=== PATIENT | female | born 1995 | race Native Hawaiian/Other Pacific Islander ===

== ENCOUNTER 2017-12-03 09:39 | Emergency (ER) | payer OTHER, SELFPAY ==
[2017-12-03 09:52] VITALS: BP 126/75; PULSE 60; RESP 16; TEMP 36.9; O2SAT 98
[2017-12-03 10:40] VITALS: BP 128/81; PULSE 90; RESP 16; O2SAT 99
--- NOTE | 2017-12-03 10:43 | ED.HA ---
HPI - Headache General Chief Complaint: Headache Stated Complaint: HEADACHE,VOMITING Time Seen by Provider: 12/03/17 09:57 Source: patient and family Mode of arrival: ambulatory Limitations: no limitations History of Present Illness HPI Narrative: Patient presents to the emergency department today with a chief complaint of severe frontal headache for the past few days. She denies any injury or recent illness. She denies fever or chills. Her pain is worse with bright lights and loud noises and improves with rest. She was seen at [facility] again yesterday and had head CT which suggested she may have an underlying mass at which point she was encouraged to get an outpatient MRI. Her pain worsened and she was directed to the emergency department instead. She denies any neck pain MD Complaint: headache Onset (ago): day(s) Onset description: gradual Location: frontal Severity: severe Quality: aching and throbbing Relieving factors: dark room Exacerbating factors: exertion and noise Associated symptoms: nausea and vomiting Treatments prior to arrival: none Related Data Home Medications Medication Instructions Recorded Confirmed albuterol sulfate 2 puff INHALATION Q6H PRN 12/03/17 12/03/17 ibuprofen 600 mg PO TID PRN 12/03/17 12/03/17 loratadine 10 mg PO DAILY 12/03/17 12/03/17 ondansetron [Zofran ODT] 4 mg PO Q4H PRN 12/03/17 12/03/17 pimecrolimus 1 applic TOPICAL BID 12/03/17 12/03/17 Allergies Allergy/AdvReac Type Severity Reaction Status Date / Time No Known Drug Allergies Allergy Verified 12/03/17 10:02 Review of Systems Review of Systems All systems reviewed & are unremarkable except as noted in HPI and below Constitutional Denies chills, Denies fever(s), Reports headache(s), Denies lethargy and Denies weakness Eyes Denies change in vision, Denies eye discharge, Denies irritation and Denies loss of vision ENT Ears, Nose, Mouth, and Throat: Denies change in voice, Reports headache(s), Denies neck pain and Denies sore throat Cardiovascular Denies chest pain, Denies irregular heart rhythm, Denies lightheadedness, Denies palpitations, Denies dyspnea, Denies dyspnea on exertion and Denies orthopnea Respiratory Denies cough, Denies dyspnea, Denies dyspnea on exertion and Denies wheezing Gastrointestinal Gastrointestinal: Denies abdominal pain, Denies change in bowel habits, Denies diarrhea, Reports nausea and Reports vomiting Genitourinary Denies hematuria, Denies flank pain, Denies urinary incontinence and Denies urinary urgency Musculoskeletal Denies neck pain Integumentary/Breasts Denies pruritus, Denies erythema, Denies rash and Denies wounds Neurologic Denies confusion, Reports headache(s), Denies loss of vision and Denies weakness Psychiatric Denies anxiety, Denies confusion, Denies depression, Denies homicidal ideation and Denies suicidal ideation Endocrine Denies palpitations Hematologic/Lymphatic Denies easy bruising Allergic/Immunologic Denies wheezing [facility] Medical History Acute eczema (Acute) Asthma (Acute) Brain mass (Acute) Social History Smoking Status: Never smoker Exam Narrative Exam Narrative: 22-year-old female in obvious distress, clutching her head in pain Initial Vital Signs Initial Vital Signs: Vital Signs Temperature 98.5 F 12/03/17 09:52 Pulse Rate 60 12/03/17 09:52 Respiratory Rate 16 12/03/17 09:52 Blood Pressure 126/75 H 12/03/17 09:52 Pulse Oximetry 98 12/03/17 09:52 Const General: cooperative and well developed Nutritional Appearance: well nourished Orientation: alert, awake, oriented x3 and not confused [facility] Head: normocephalic and atraumatic Ears: external ears normal and TM's normal bilaterally Nose: external nose normal and No nasal discharge Face and sinus: sinuses nontender, face symmetric, no sinus tenderness and No dry mucous membranes Mouth: oral mucosae normal and moist mucous membranes Teeth and gingiva: dentition normal Throat: tonsils normal and uvula midline Eyes General: appearance normal, both eyes and all related structures Eyelids: eyelids normal Conjunctivae: conjunctivae normal Sclera: sclerae normal Pupils: PERRL EOM: EOM intact bilaterally Chest Chest: normal inspection of the chest Cardio Rate: regular rate Rhythm: regular rhythm Heart Sounds: no click, no gallops, no murmurs and no rubs Pulses: normal peripheral pulses GI Inspection: non-distended Palpation: soft, no hepatosplenomegaly, No guarding, No pulsatile mass and No tender Auscultation: normal bowel sounds Back/Spine/Pelvis Back: No CVA tenderness Cervical Spine: cervical ROM normal and No pain with cervical ROM Thoracic/Lumbar Spine: thoracic and lumbar spine normal to inspection Neuro General: alert, oriented x3, gait normal and no focal motor deficits Cranial Nerves: CN's II-XI intact bilaterally Speech: speech normal Motor: muscle tone normal throughout Sensory Exam: no sensory deficits noted Extrem General: full ROM, no clubbing, cyanosis or edema, no pedal edema and no calf tenderness Psych Appearance: well kempt Mental Status: mental status grossly normal Attitude: cooperative Thought Content: normal and suicidality Judgment: judgment good Course Orders Ordered: ED Orders 12/03/17 10:54 MR head/brain wo/w con Stat 12/03/17 11:15 Basic Metabolic Panel Stat Complete Blood Count AUTO DIFF Stat Discontinued Medications Benztropine Mesylate (Cogentin) 1 mg PO NOW ONE Stop: 12/03/17 11:26 Last Admin: 12/03/17 12:20 Dose: Dexamethasone (Decadron) 10 mg IV NOW ONE Stop: 12/03/17 10:54 Last Admin: 12/03/17 11:14 Dose: 10 mg Diphenhydramine HCl (Benadryl) 25 mg IV NOW ONE Stop: 12/03/17 10:54 Last Admin: 12/03/17 11:14 Dose: 25 mg Sodium Chloride (Normal Saline 0.9%) 1,000 mls @ 1,000 mls/hr IV BOLUS ONE Stop: 12/03/17 11:52 Last Admin: 12/03/17 11:09 Dose: 1,000 mls/hr Ketorolac Tromethamine (Toradol) 15 mg IV NOW ONE Stop: 12/03/17 10:54 Last Admin: 12/03/17 11:11 Dose: 15 mg Lorazepam (Ativan) 1 mg IV NOW ONE Stop: 12/03/17 11:31 Last Admin: 12/03/17 11:35 Dose: 1 mg Metoclopramide HCl (Reglan) 10 mg IV NOW ONE Stop: 12/03/17 10:54 Last Admin: 12/03/17 11:12 Dose: 10 mg Vital Signs - 8 hr 12/03/17 09:52 12/03/17 10:40 12/03/17 11:30 Temperature 98.5 F Pulse Rate 60 90 78 Respiratory Rate 16 16 16 Blood Pressure 126/75 H Blood Pressure [Left Arm] 128/81 H 118/79 Pulse Oximetry 98 99 100 12/03/17 12:26 Temperature Pulse Rate 63 Respiratory Rate 21 Blood Pressure Blood Pressure [Left Arm] 133/70 H Pulse Oximetry 100 MDM - Headache Differential Diagnosis Differential diagnosis: Likely migraine, tension headache, subarachnoid hemorrhage, headache, meningitis, sinusitis and postconcussion syndrome Medical Records Attestation: I reviewed the patient's medical records. Lab Data Attestation: I reviewed the patient's lab results. Result diagrams: 12/03/17 11:15 12/03/17 11:15 Lab Results 12/03/17 12/03/17 Range/Units 11:15 11:15 WBC 13.8 H (4.5-11.0) X10^3/uL RBC 5.06 (4.0-5.2) X10^6/uL Hgb 13.3 (12.0-16.0) g/dL Hct 40.5 (36-46) % MCV 80.1 (80-100) fL MCH 26.3 (26-34) PG MCHC 32.8 (30-36) % RDW 13.7 (11.6-14.8) % Plt Count 435 H (150-400) X10^3/uL Neut % (Auto) 81.7 H (50-75) % Lymph % (Auto) 11.9 L (25-40) % [place] % (Auto) 4.5 (3-14) % Eos % (Auto) 1.6 L (2-4) % Baso % (Auto) 0.3 (0-2) % Neut # (Auto) 01433 H (8085-4549) /uL Sodium 139 (137-145) mmol/L Potassium 3.8 (3.4-5.1) mmol/L Chloride 100 (98-107) mmol/L Carbon Dioxide 26 (22-32) mmol/L BUN 10 (7-17) mg/dL Creatinine 0.50 L (0.52-1.04) mg/dL Estimated GFR > 60.0 (>60) mL/min BUN/Creatinine Ratio 20.0 (6-22) Glucose 103 H (70-100) mg/dL Calcium 9.3 (8.4-10.2) mg/dL Imaging Data MRI - head: Attestation: I personally reviewed and interpreted this imaging study as follows: My impression: PROCEDURE: MR HEAD/BRAIN WO/W CON INDICATIONS: severe WADE, vomiting. Mass on CT at outside facility TECHNIQUE: Noncontrast axial T1 spin echo, axial T2 fast spin echo, sagittal and axial FLAIR, coronal T2 fast spin echo, axial gradient echo, axial diffusion and ADC through the brain. After the administration of contrast, axial and coronal 3D VIBE or T1 spin echo with fat saturation through the brain. COMPARISON: None. FINDINGS: Image quality: Excellent. CSF Spaces: Basal cisterns are patent. No extra-axial fluid collections. Ventricles are mildly asymmetric in size and shape, with the left lateral ventricle smaller than that on the right, but with normal adjacent brain parenchyma and no sign of mass lesion or contrast enhanced abnormality to explain that asymmetry. Brain: No midline shift. No intracranial bleeds or masses. No abnormal intracranial enhancement. The brainstem appears normal. Diffusion-weighted images demonstrate no acute ischemic insults. No chronic ischemic insults. Normal intravascular flow voids are present. Skull and face: Calvarial marrow is normal in signal. Orbits appear normal. Sinuses: Sinuses and mastoids appear clear. IMPRESSION: A source of severe headache and persistent vomiting is not identified. There is normal anatomic variant asymmetry in the size of the lateral ventricles, smaller on the left than the right, and this is most prominent when comparing the frontal horn of the lateral ventricles. However, the contrast enhanced and pre-contrast imaging shows normal appearing brain parenchyma immediately adjacent to the left lateral ventricle. No underlying mass is suspected but this asymmetry may explain the reported concern by prior CT scanning at an outside institution for possible underlying mass lesion. Dictated by: Hernán Abel M.D. on 12/03/2017 at 12:12 Approved by: Hernán Abel M.D. on 12/03/2017 at 12:17 [facility] Narrative Medical decision making narrative: patient resting comfortably. No fever, neck pain, recent illness. Discharge Plan Departure Patient Disposition: Home, Self-Care Clinical Impression: Headache Instructions: DI for Headache Activity Restrictions/Additional Instructions: My headache Prescriptions: No Action ibuprofen 600 mg Tablet 600 mg PO TID PRN (Reason: Pain (Scale Score 1-3)) RF: 0 ondansetron [Zofran ODT] 4 mg Tablet,Disintegrating 4 mg PO Q4H PRN (Reason: Nausea) RF: 0 pimecrolimus 1 % Cream 1 applic TOPICAL BID RF: 0 loratadine 10 mg Tablet 10 mg PO DAILY RF: 0 albuterol sulfate 90 mcg/actuation Hfa Aerosol Inhaler 2 puff INHALATION Q6H PRN (Reason: Dyspnea) RF: 0
--- NOTE | 2017-12-03 10:54 | DI.MRI.S_ITS ---
PROCEDURE: MR HEAD/BRAIN WO/W CON INDICATIONS: severe WADE, vomiting. Mass on CT at outside facility TECHNIQUE: Noncontrast axial T1 spin echo, axial T2 fast spin echo, sagittal and axial FLAIR, coronal T2 fast spin echo, axial gradient echo, axial diffusion and ADC through the brain. After the administration of contrast, axial and coronal 3D VIBE or T1 spin echo with fat saturation through the brain. COMPARISON: None. FINDINGS: Image quality: Excellent. CSF Spaces: Basal cisterns are patent. No extra-axial fluid collections. Ventricles are mildly asymmetric in size and shape, with the left lateral ventricle smaller than that on the right, but with normal adjacent brain parenchyma and no sign of mass lesion or contrast enhanced abnormality to explain that asymmetry. Brain: No midline shift. No intracranial bleeds or masses. No abnormal intracranial enhancement. The brainstem appears normal. Diffusion-weighted images demonstrate no acute ischemic insults. No chronic ischemic insults. Normal intravascular flow voids are present. Skull and face: Calvarial marrow is normal in signal. Orbits appear normal. Sinuses: Sinuses and mastoids appear clear. IMPRESSION: A source of severe headache and persistent vomiting is not identified. There is normal anatomic variant asymmetry in the size of the lateral ventricles, smaller on the left than the right, and this is most prominent when comparing the frontal horn of the lateral ventricles. However, the contrast enhanced and pre-contrast imaging shows normal appearing brain parenchyma immediately adjacent to the left lateral ventricle. No underlying mass is suspected but this asymmetry may explain the reported concern by prior CT scanning at an outside institution for possible underlying mass lesion. Dictated by: Hernán Abel M.D. on 12/03/2017 at 12:12 Approved by: Hernán Abel M.D. on 12/03/2017 at 12:17
[2017-12-03] MEDS: SODIUM CHLORIDE 0.9% 1,000 ML 1000 ML IV (11:09)
[2017-12-03] MEDS: KETOROLAC 60 MG/2 ML VIAL 15 MG IV (11:11)
[2017-12-03] MEDS: METOCLOPRAMIDE 10 MG/2 ML INJ IV (11:12)
[2017-12-03] MEDS: DEXAMETHASONE 10 MG/ML VIAL IV (11:14)
[2017-12-03] MEDS: diphenhydrAMINE 50 MG/ML VIAL 25 MG IV (11:14)
[2017-12-03 11:23] LABS: Add Manual Diff / Slide Review NO; Basophils Percent Auto 0.3 % (0-2); Eosinophils Percent Auto 1.6 % (2-4); Hematocrit 40.5 % (36-46); Hemoglobin 13.3 g/dL (12.0-16.0); Lymphocytes Percent Auto 11.9 % (25-40); Mean Corpuscular HGB Conc 32.8 % (30-36); Mean Corpuscular Hemoglobin 26.3 PG (26-34); Mean Corpuscular Volume 80.1 fL (80-100); Monocytes Percent Auto 4.5 % (3-14); Neutrophils Absolute Auto 11300 /uL (3000-5900); Neutrophils Percent Auto 81.7 % (50-75); Platelet Count 435 X10^3/uL (150-400); Red Blood Cell Count 5.06 X10^6/uL (4.0-5.2); Red Cell Distribution Width 13.7 % (11.6-14.8); White Blood Cell Count 13.8 X10^3/uL (4.5-11.0)
--- NOTE | 2017-12-03 11:27 | PC.NURSE ---
Moaning and writhing in pain, unable to lie still. Edil PURCELL aware.
[2017-12-03 11:30] VITALS: BP 118/79; PULSE 78; RESP 16; O2SAT 100
[2017-12-03] MEDS: LORazepam 2 MG/ML SYRINGE 1 MG IV (11:35)
[2017-12-03 11:40] LABS: Blood Urea Nitrogen 10 mg/dL (7-17); Calcium 9.3 mg/dL (8.4-10.2); Carbon Dioxide 26 mmol/L (22-32); Chloride 100 mmol/L (98-107); Estimated Glomerular Filt Rate > 60.0 mL/min (>60); Glucose 103 mg/dL (70-100); HEMOLYSIS < 15 (0-50); Potassium 3.8 mmol/L (3.4-5.1); Sodium 139 mmol/L (137-145)
[2017-12-03 12:26] VITALS: BP 133/70; PULSE 63; RESP 21; O2SAT 100
--- NOTE | 2017-12-03 12:41 | PC.NURSE ---
Patient unable to lay flat due to uncomfortability of muscle cramp. She was given 1 mg ativan instead of cogentin which was originally ordered to help with these symptoms, so that we could get her calm enough to lie flat for MRI. Ativan was effective and calmed her down within a minute. She reports pain in muscle has subsided.
[2017-12-03 13:50] VITALS: BP 116/65; PULSE 68; RESP 16; O2SAT 98
== END 2017-12-03 13:50 | disposition home or self-care (01) ==
PROVIDERS: Emergency Provider Emergency Medicine
DX: R51 Headache (principal)
CPT/HCPCS: 36591; 70553; 80048; 85025; 96361; 96374; 96375; 99283; 99284; J1100; J1200; J1885; J2060; J2765

== ENCOUNTER 2019-02-05 20:01 | Emergency (ER) | payer OTHER, SELFPAY ==
[2019-02-05 20:05] VITALS: BP 99/61; PULSE 90; RESP 16; TEMP 36.6; O2SAT 96
--- NOTE | 2019-02-05 20:13 | ED.RECABL ---
HPI - Recheck/Abnormal Lab/Rx General Chief Complaint: Recheck/Abnormal Lab/Rx Stated Complaint: PEG TUBE ISSUE Time Seen by Provider: 02/05/19 20:08 Source: family Mode of arrival: wheelchair Limitations: no limitations History of Present Illness HPI narrative: Patient is a 23-year-old female with multiple medical problems. 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 She is not taking any food or liquid by mouth. The parents here for evaluation of the PEG tube. They stated that 3 of today's feedings took longer than normal. he stated that it did flush before and after the feedings without any problems however the tube feedings just took longer. They think that the child has been pulling at the PEG tube. There is also a small amount of red material around the PEG tube they are concerned about. Parents state that she is at her baseline mental status. Related Data Home Medications Medication Instructions Recorded Confirmed albuterol sulfate 2 puff INHALATION Q6H PRN 12/03/17 12/03/17 ibuprofen 600 mg PO TID PRN 12/03/17 12/03/17 loratadine 10 mg PO DAILY 12/03/17 12/03/17 ondansetron [Zofran ODT] 4 mg PO Q4H PRN 12/03/17 12/03/17 pimecrolimus 1 applic TOPICAL BID 12/03/17 12/03/17 Allergies Allergy/AdvReac Type Severity Reaction Status Date / Time No Known Drug Allergies Allergy Verified 12/03/17 10:02 Review of Systems Review of Systems ROS Unobtainable: Unobtainable due to medical condition [facility] Medical History Acute eczema (Acute) Asthma (Acute) Brain mass (Acute) Encephalitis (Acute) Surgical History S/P percutaneous endoscopic gastrostomy (PEG) tube placement (Acute) Social History Smoking Status: Never smoker Social History Smoking Status: Never smoker Exam Initial Vital Signs Initial Vital Signs: Vital Signs Temperature 97.9 F 02/05/19 20:05 Pulse Rate 90 08/22/19 20:05 Respiratory Rate 16 02/05/19 20:05 Blood Pressure 99/61 02/05/19 20:05 Pulse Oximetry 96 02/05/19 20:05 Const General: comfortable Orientation: awake HENMT Head: normal to inspection and normocephalic Neck Other: Trach stoma appears well and is closing appropriately Resp Effort & Inspection: normal respiratory effort Cardio Rate: regular rate GI Other: Patient with a PEG tube in the left upper quadrant. It appears to be in place. There is no drainage. There is a small amount of granulation tissue at the insertion site. There is no active bleeding. Neuro Other: Nonverbal, does not follow commands is at baseline per the parents Extrem General: capillary refill normal Course Vital Signs - 8 hr 02/05/19 20:05 02/05/19 21:11 Temperature 97.9 F Pulse Rate 90 68 Respiratory Rate 16 Blood Pressure 99/61 93/52 L Pulse Oximetry 96 96 MDM - Recheck/Abnormal Lab/Rx MDM Narrative Medical decision making narrative: Her PEG tube looks well and appears to be in place. The red areas around the PEG tube is granulation tissue. There is no need for intervention here in the ER for this. I did discuss this with the parents. They stated that the tube feedings today were slow. They did infuse but would just took longer than normal. Mother states that the flushes were normal afterwards. I do not feel like the tube is been displaced. Will hold on further workup for now. We discussed return precautions and follow-up instructions parents expressed understanding and agreement with plan. Discharge Plan Departure Patient Disposition: Home Clinical Impression: Irritation around percutaneous endoscopic gastrostomy (PEG) tube site Discharge Date/Time: 02/05/19 21:11 Interventions: ED Discharge Assessment Last Done: 02/05/19 21:11 Instructions: How to Care for Your PEG Tube Activity Restrictions/Additional Instructions: You can give her 1 extra strength Tylenol every 4 hours as needed for discomfort. Contact her primary provider for a follow-up. Return to the emergency department for any new or worsening symptoms. Prescriptions: No Action ibuprofen 600 mg Tablet 600 mg PO TID PRN (Reason: Pain (Scale Score 1-3)) RF: 0 ondansetron [Zofran ODT] 4 mg Tablet,Disintegrating 4 mg PO Q4H PRN (Reason: Nausea) RF: 0 pimecrolimus 1 % Cream 1 applic TOPICAL BID RF: 0 loratadine 10 mg Tablet 10 mg PO DAILY RF: 0 albuterol sulfate 90 mcg/actuation Hfa Aerosol Inhaler 2 puff INHALATION Q6H PRN (Reason: Dyspnea) RF: 0
[2019-02-05 21:11] VITALS: BP 93/52; PULSE 68; O2SAT 96
== END 2019-02-05 21:11 | disposition home or self-care (01) ==
PROVIDERS: Emergency Provider Emergency Medicine
DX: K94.29 Other complications of gastrostomy (principal)
CPT/HCPCS: 99282

== ENCOUNTER 2019-02-11 21:41 | Emergency (ER) | payer OTHER, SELFPAY ==
[2019-02-11 21:48] VITALS: BP 102/60; PULSE 108; RESP 15; TEMP 36.3; O2SAT 96
--- NOTE | 2019-02-11 23:39 | PC.NURSE ---
Her PEG tube was accidentally pulled out tonight.
--- NOTE | 2019-02-12 00:24 | ED_ITS ---
HPI - Wound/Laceration General Chief Complaint: Wound/Laceration Stated Complaint: PEGG tube is out Time Seen by Provider: 02/12/19 00:04 Source: family and old records reviewed Limitations: no limitations History of Present Illness HPI narrative: Patient is a 23-year-old female with history of encephalitis she is now nonambulatory and nonverbal she had a G tube however this evening the tube fell out. Mom and dad are worried unable to give her seizure patient's. Most of her care was done at patient they are unsure the size of the tube. She is completely NPO. Related Data Home Medications Medication Instructions Recorded Confirmed albuterol sulfate 2 puff INHALATION Q6H PRN 12/03/17 12/03/17 ibuprofen 600 mg PO TID PRN 12/03/17 12/03/17 loratadine 10 mg PO DAILY 12/03/17 12/03/17 ondansetron [Zofran ODT] 4 mg PO Q4H PRN 12/03/17 12/03/17 pimecrolimus 1 applic TOPICAL BID 12/03/17 12/03/17 Allergies Allergy/AdvReac Type Severity Reaction Status Date / Time No Known Drug Allergies Allergy Verified 02/11/19 21:48 Review of Systems Review of Systems ROS Unobtainable: Unobtainable due to medical condition [facility] Medical History Acute eczema (Acute) Asthma (Acute) Brain mass (Acute) Encephalitis (Acute) Surgical History S/P percutaneous endoscopic gastrostomy (PEG) tube placement (Acute) Social History Smoking Status: Never smoker Social History Smoking Status: Never smoker Exam Initial Vital Signs Initial Vital Signs: Vital Signs Temperature 97.3 F L 02/11/19 21:48 Pulse Rate 108 H 02/11/19 21:48 Respiratory Rate 15 02/11/19 21:48 Blood Pressure 102/60 02/11/19 21:48 Pulse Oximetry 96 02/11/19 21:48 Gen.: Alert nonverbal female HEENT: Normal to inspection no trauma noted Neck: Trach stoma noted Lungs: No respiratory distress Cardiac: Peripheral pulses intact Abdomen: G tube site noted, no significant surrounding erythema abdomen overall nontender normal bowel sounds Extremities: Moving upper extremities Neurologic: Non verbal does not follow commands, good eye contact Course Vital Signs Vital signs: Vital Signs - 8 hr 02/11/19 21:48 02/12/19 02:05 Temperature 97.3 F L 97.9 F Pulse Rate 108 H 84 Respiratory Rate 15 18 Blood Pressure 102/60 100/62 Pulse Oximetry 96 97 MDM - Wound/Laceration MDM Narrative Medical decision making narrative: Unfortunately unable to find G tube or PEG tube or any sort of feeding tube in the hospital. A 20 [place] Moralez catheter placed by myself at this site. It has good gastric content return easily flushes. Mother was able to give seizure medications including Keppra clonazepam and Vimpat. I have explained this is a temporary until a Gtube can be replaced. I have apologized about not having the correct device. At this time it can be use for medications and feedings. Discharge Plan Departure Patient Disposition: Home Clinical Impression: Gastrostomy tube dysfunction, Gastrojejunostomy tube dislodgement Discharge Date/Time: 02/12/19 02:05 Instructions: DI for Feeding Tube Exchange, How to Use Your Feeding Tube Activity Restrictions/Additional Instructions: *You have been diagnosed with feeding to *What to do: You will need a proper feeding tube. Unfortunately we did not have any available. Moralez catheter has been placed. It is okay for medications and some tube feedings. *Continue to take medications as directed *Follow up with your primary care provider in 2-3 days *Return to ER if you should have redness abdominal pain, dislodgement or any new, worsening or concerning symptoms Prescriptions: No Action ibuprofen 600 mg Tablet 600 mg PO TID PRN (Reason: Pain (Scale Score 1-3)) RF: 0 ondansetron [Zofran ODT] 4 mg Tablet,Disintegrating 4 mg PO Q4H PRN (Reason: Nausea) RF: 0 pimecrolimus 1 % Cream 1 applic TOPICAL BID RF: 0 loratadine 10 mg Tablet 10 mg PO DAILY RF: 0 albuterol sulfate 90 mcg/actuation Hfa Aerosol Inhaler 2 puff INHALATION Q6H PRN (Reason: Dyspnea) RF: 0 Referrals: Bill Monteiro MD [Primary Care Provider] -
[2019-02-12 02:05] VITALS: BP 100/62; PULSE 84; RESP 18; TEMP 36.6; O2SAT 97
--- NOTE | 2019-02-12 02:25 | PC.NURSE ---
DR Guillory inserted sullivan catheter in left abdomen to use a PEG tube for her meds and feedings,the site was clean and dry and pink at the edges before insertion,DR cleaned the site prior to placing catheter.Her mother was able to give her her night time meds with out difficulty after,DR Guillory had prior confirmed placement by aspiration of stomach contents.A sterile 4 by 4 dressing was placed and the tube was secured with tape.
== END 2019-02-12 02:05 | disposition home or self-care (01) ==
PROVIDERS: Emergency Provider Emergency Medicine; PCP Internal Medicine
DX: K94.23 Gastrostomy malfunction (principal)
CPT/HCPCS: 99282; 99283

== ENCOUNTER 2021-11-28 13:30 | Outpatient (RCR) | payer OTHER, MEDICAID, SELFPAY ==
--- NOTE | 2021-08-29 17:35 | ST.OPIE ---
Visit Care Team Role Provider Type Bill Monteiro MD Primary Care Provider Non-Staff Specialty: Internal Medicine Address: [address] [facility], [place], [address] Email: Gab Lester MD Attending Provider Non-Staff Referring Provider Specialty: Family Practice Address: [address] [place] [address], [id number] Email: Speech-Language Pathology Initial Evaluation GROUND SOURCE HEAT PUMP TECHNICIAN Adult Cognitive Linguistic Eval Start: 08/29/21 13:32 Freq: Status: Active Protocol: Document 08/29/21 13:35 CYNTHIA (Rec: 08/29/21 13:52 CYNTHIA [email or web address]) Adult Cognitive Linguistic Evaluation Session Time Visit Start Time 13:30 Visit Stop Time 14:30 Total Visit Minutes 60 Visit Information Visit Number Initial Evaluation Plan of Care Dates 08/29/21 - 12/06/21 Insurance Information [facility] Referral Referring Provider Dr. Gab Roman Reason for Referral Encephalitis and encephalomyelitis, unspecified Setting Assessment Location Outpatient Care Visit Type Note Type Initial evaluation Next Note Type Next Note Type Treatment Note Patient Information Patient History Pt is a 26-yr-old female diagnosed with anti-NMDA receptor encephalitis in 2018. Symptoms began with headache and nausea in October 2017. Pt's parents brought her to [facility], where CT scan revealed a potential brain mass. Pt went to [facility] ED the following day, where MRI revealed no underlying mass but asymmetry in the size of the lateral ventricles, smaller on the left than the right, which may explain the reported concern by prior CT scanning. The pt went home and the following day had grand mal seizure. She was admitted to [facility] ICU for 6 mos ([id number]) with severe dyskinesia and ongoing seizure activity. A coma was induced, and the pt underwent tracheotomy and PEG tube feeding. As she became more alert and able to track and respond to stimuli, she was transferred to the Neuroscience floor of hospital where she remained for ~2 mos until transferring to [facility] facility in [place] for ~ 4 mos. There, she regressed and had increased seizure activity and was returned to [facility] ICU. A Neurologist diagnosed a reaction to medication ( Amantadine). The medication was removed and the pt transferred again to Neuroscience floor and seizures stopped. The pt went home in December 2018 with (PT/ OT/ST, Nsg and CG) and continued to show progress at home, starting to walk and speak again in 2019. Her mother is a para-educator and was highly participatory in her rehabilitation. Today the pt is self- ambulatory and communicating independently without notable speech or language deficits. PEG tube and port have been removed. Tracheostomy and medication port remain in place, though neither is actively used. The pt is medically cleared to have them closed/removed, but the patient is currently refusing the procedures; the reason was not given. The pt reports ongoing cognitive impairments, particularly in areas of mathematical skills, problem solving and abstract reasoning . Her mother reported ongoing behavioral changes including anxiety, anger, and lack of social interest. 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 Language(s) Spoken in the Home [place]ander Education Level 1 yr college/technical training Occupation Status Not working or attending school d/t deficits Hearing Hearing Level Normal Vision Vision Status Not Impaired Previous Therapy Previous Speech-Language Therapy Yes History of Therapy The pt received GROUND SOURCE HEAT PUMP TECHNICIAN services in acute care, inpatient rehab , LTC, and . Subjective Patient Report The pt arrived on time accompanied by her parents who were present for part of the session, contributing to case history. They were not present during formal assessment. Informal Assessment Receptive Language Normal Yes Expressive Language Normal Yes Pragmatic Language Normal Yes Speech Normal Yes Cognition Normal No Cognitive Impairment(s) Attention,Executive functioning,Problem solving, Reasoning Formal Assessment Standardized Test/Screener Type Cognitive Linguistic Quick Test (CLQT) Administration Complete Results Composite Severity Rating: Mild Pt scored WNL in Language domain and Clock Drawing. She scored mild in all other domains including Attention, Memory, Executive Functions, and Visuospatial Skills. The pt exhibited greatest challenge with mazes, design generation, and recall of oral story. She completed mazes using most of the allotted time, crossing servin and following incorrect paths, which were self-corrected. She generated 2 complete designs, and recalled 10/18 story details and answered 4/6 questions correctly. She generated 12 animals and 10 words beginning with M in 60 sec each. Clock drawing was correct, though hands originated 1/2 from [place]. Pt recognized 5/6 of designs from groups of designs . Orientation and Semantic Comprehension were without error, with exception of Story Retelling items. In conversation, expressive and receptive language, pragmatics and speech were all WNL. Findings/Results Language Function Within normal limits Cognitive Function Mildly impaired Findings The pt presents with mild cognitive communication impairments in areas of attention, memory, executive functions, and visuospatial skills. Cognitive Communication Deficits Self-awareness of Cognitive- Predictive awareness (able to Communication Deficits predict problem; impact of impairments) Impact on Functioning Activity Limits/Particip.Rest. Mild: General Tasks and Demands Interpersonal Interactions Sev: Education Employment Prognosis Prognosis Good Based on Cognitive status,Family support,Duration of symptoms/ severity,Time since onset Plan of Care Speech-Language Treatment Yes Frequency 1x/wk, may reduce frequency over course of treatment Duration 12 visits Patient/Caregiver Education Described results of evaluation,Patient expressed understanding of evaluation, Patient expressed agreement with goals and treatment plans ,Family/caregivers expressed understanding of evaluation, Family/caregivers expressed agreement with goals and treatment plan,Patient requires further education/ training,Family/caregivers require further education/ training Short Term Goals 1. The pt will perform simple functional household tasks requiring problem-solving ability with min assistance using Sbvm-Hcfg-Uj-Review strategy to increase independence and safety. 2. The pt will perform moderately complex in-clinic tasks requiring alternating attention with minimal assistance to improve attention skills required for return to education. 3. The pt will perform abstract reasoning tasks of moderate complexity with 80% accuracy to improve executive function skills required for functional ADLs and return to school. 4. The pt will perform simple in-clinic visuospatial tasks requiring planning and execution with 80% accuracy to improve executive function skills necessary for functional ADLs and return to school. 5. The pt will complete mathematical problems ( addition, subtraction, multiplication, division) of moderate complexity with 80% accuracy to improve math skills necessary for functional ADLs and return to school. Communications Manager Goals 1. The pt will perform moderately complex functional household tasks requiring problem-solving ability independently using Goal-Plan- Do-Review strategy to increase independence and safety. 2. The pt will perform moderately complex functional household tasks requiring alternating attention (e.g., following a recipe) with minimal assistance to improve attention skills required for return to education. 3. The pt will perform deductive reasoning tasks of moderate complexity with 80% accuracy to improve executive function skills required for functional ADLs and return to school. 4. The pt will perform functional home/community tasks requiring planning and execution (e.g., attending appts, meeting HEP deadlines) with min assistance and 80% accuracy to improve executive function skills necessary for functional ADLs and return to school. 5. The pt will complete moderately complex story problems involving basic math functions and measuring with 80% accuracy to improve ability to perform ADLs and return to school.
--- NOTE | 2021-09-19 17:21 | ST.OPTN ---
Visit Care Team Role Provider Type Bill Monteiro MD Primary Care Provider Non-Staff Address: [address] [facility], [place], [address] Gab Lester MD Attending Provider Non-Staff Referring Provider Address: [facility] [place], [address] AIR CONDITIONING SERVICE TECHNICIAN Treatment Note AIR CONDITIONING SERVICE TECHNICIAN Treatment Note Start: 08/29/21 13:32 Freq: Status: Active Protocol: Document 09/19/21 16:54 CYNTHIA (Rec: 09/19/21 16:54 CYNTHIA [email or web address]) Speech Pathology Treatment Note Session Time Visit Start Time 14:30 Visit Stop Time 15:20 Total Visit Minutes 50 Visit Information Visit Number 07/30 Plan of Care Dates 08/29/21 - 12/06/21 Insurance Information [facility] Setting Treatment Setting Outpatient Care Next Note Type Next Note Type Treatment Note General Information Patient History Pt is a 26-yr-old 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 Symptoms began with headache and nausea in October 2017. Pt's parents brought her to [facility], where CT scan revealed a potential brain mass. Pt went to [facility] ED the following day, where MRI revealed no underlying mass but asymmetry in the size of the lateral ventricles, smaller on the left than the right, which may explain the reported concern by prior CT scanning. The pt went home and the following day had grand mal seizure. She was admitted to [facility] ICU for 6 mos ([id number]) with severe dyskinesia and ongoing seizure activity. A coma was induced, and the pt underwent tracheotomy and PEG tube feeding. As she became more alert and able to track and respond to stimuli, she was transferred to the Neuroscience floor of hospital where she remained for ~2 mos until transferring to [facility] facility in [place] for ~ 4 mos. There, she regressed and had increased seizure activity and was returned to [facility] ICU. A Neurologist diagnosed a reaction to medication ( Amantadine). The medication was removed and the pt transferred again to Neuroscience floor and seizures stopped. The pt went home in December 2018 with HH (PT/ OT/ST, Nsg and CG) and continued to show progress at home, starting to walk and speak again in 2019. Her mother is a para-educator and was highly participatory in her rehabilitation. Today the pt is self- ambulatory and communicating independently without notable speech or language deficits. PEG tube and port have been removed. Tracheostomy and medication port remain in place, though neither is actively used. The pt is medically cleared to have them closed/removed, but the patient is currently refusing the procedures; the reason was not given. The pt reports ongoing cognitive impairments, particularly in areas of mathematical skills, problem solving and abstract reasoning . Her mother reported ongoing behavioral changes including anxiety, anger, and lack of social interest. 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 Subjective Observations/Patient Presentation Pt arrived on time. Reported completing elementary level Language Arts homework from workbooks provided by her mother. She stated most but not all exercises were easy. She agreed to bring workbooks to next session for evaluation . Chief Complaint(s) Language,Cognitive Patient Knowledge/Awareness of AIR CONDITIONING SERVICE TECHNICIAN Role Good in Treatment Parent/Caretake Knowledge/Awareness of Good AIR CONDITIONING SERVICE TECHNICIAN Role in Treatment Patient/Caregiver Compliance with Home Good Exercise Program Objective Short Term Goals 1. The pt will perform simple functional household tasks requiring problem-solving ability with min assistance using Opwj-Jusk-Ky-Review strategy to increase independence and safety. 2. The pt will perform moderately complex in-clinic tasks requiring alternating attention with minimal assistance to improve attention skills required for return to education. 3. The pt will perform abstract reasoning tasks of moderate complexity with 80% accuracy to improve executive function skills required for functional ADLs and return to school. 4. The pt will perform simple in-clinic visuospatial tasks requiring planning and execution with 80% accuracy to improve executive function skills necessary for functional ADLs and return to school. 5. The pt will complete mathematical problems ( addition, subtraction, multiplication, division) of moderate complexity with 80% accuracy to improve math skills necessary for functional ADLs and return to school. Mcc Goals 1. The pt will perform moderately complex functional household tasks requiring problem-solving ability independently using Goal-Plan- Do-Review strategy to increase independence and safety. 2. The pt will perform moderately complex functional household tasks requiring alternating attention (e.g., following a recipe) with minimal assistance to improve attention skills required for return to education. 3. The pt will perform deductive reasoning tasks of moderate complexity with 80% accuracy to improve executive function skills required for functional ADLs and return to school. 4. The pt will perform functional home/community tasks requiring planning and execution (e.g., attending appts, meeting HEP deadlines) with min assistance and 80% accuracy to improve executive function skills necessary for functional ADLs and return to school. 5. The pt will complete moderately complex story problems involving basic math functions and measuring with 80% accuracy to improve ability to perform ADLs and return to school. Treatment Activities Targeted math skills using measuring task in [employer]vate shane. The pt initially required rvwe-ff-[id number] instruction and prompts to perform simple fraction problems involving multiplication. Cueing faded to moderate over course of 6 trials. Task was simplified to multiplication problems using numbers 1-12 via flashcards ( 84% acc). A multiplication table was provided to the pt for home practice. Assessment Patient Response to Treatment Good Rehab Potential Excellent Impairments Identified Cognitive-Linguistic Skills Assessment of Overall Progress Improving Assessment of Improvement The pt was stimulable to math problems using fractions but required mod-max prompts. She expressed being disappointed at not remembering math that she used to be very good at. 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 Reviewed with Patient Goals,Progress Being Made,Home Exercise Program Patient/Caregiver Understanding Good Plan Amount of Therapy Recommended 10 Months Frequency of Treatment Once a Week Length of Session 45 Minutes Treatment Emphasis Next Session Cont targeting math skills Therapeutic Contents Client Education,Cognitive- Linguistic Training,Home Exercise Program,Information Processing,Return to School Provided Patient/Caregiver Instruction Home Exercise Program,Plan of Care,Questions/Concerns Therapy Recommendations Continue with Current Program
--- NOTE | 2021-09-25 17:19 | ST.OPTN ---
Visit Care Team Role Provider Type Bill Monteiro MD Primary Care Provider Non-Staff Address: [address] [facility], [place], [address] Gab Lester MD Attending Provider Non-Staff Referring Provider Address: [facility] [place], [address] GASOLINE TRUCK CRANE OPERATOR Treatment Note GASOLINE TRUCK CRANE OPERATOR Treatment Note Start: 08/29/21 13:32 Freq: Status: Active Protocol: Document 09/19/21 16:54 CYNTHIA (Rec: 09/19/21 16:54 CYNTHIA [email or web address]) Speech Pathology Treatment Note Session Time Visit Start Time 14:30 Visit Stop Time 15:20 Total Visit Minutes 50 Visit Information Visit Number 07/30 Plan of Care Dates 08/29/21 - 12/06/21 Insurance Information [facility] Setting Treatment Setting Outpatient Care Next Note Type Next Note Type Treatment Note General Information Patient History Pt is a 26-yr-old 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 Symptoms began with headache and nausea in October 2017. Pt's parents brought her to [facility], where CT scan revealed a potential brain mass. Pt went to [facility] ED the following day, where MRI revealed no underlying mass but asymmetry in the size of the lateral ventricles, smaller on the left than the right, which may explain the reported concern by prior CT scanning. The pt went home and the following day had grand mal seizure. She was admitted to [facility] ICU for 6 mos ([id number]) with severe dyskinesia and ongoing seizure activity. A coma was induced, and the pt underwent tracheotomy and PEG tube feeding. As she became more alert and able to track and respond to stimuli, she was transferred to the Neuroscience floor of hospital where she remained for ~2 mos until transferring to [facility] facility in [place] for ~ 4 mos. There, she regressed and had increased seizure activity and was returned to [facility] ICU. A Neurologist diagnosed a reaction to medication ( Amantadine). The medication was removed and the pt transferred again to Neuroscience floor and seizures stopped. The pt went home in December 2018 with HH (PT/ OT/ST, Nsg and CG) and continued to show progress at home, starting to walk and speak again in 2019. Her mother is a para-educator and was highly participatory in her rehabilitation. Today the pt is self- ambulatory and communicating independently without notable speech or language deficits. PEG tube and port have been removed. Tracheostomy and medication port remain in place, though neither is actively used. The pt is medically cleared to have them closed/removed, but the patient is currently refusing the procedures; the reason was not given. The pt reports ongoing cognitive impairments, particularly in areas of mathematical skills, problem solving and abstract reasoning . Her mother reported ongoing behavioral changes including anxiety, anger, and lack of social interest. 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 Subjective Observations/Patient Presentation Pt arrived on time. Reported completing elementary level Language Arts homework from workbooks provided by her mother. She stated most but not all exercises were easy. She agreed to bring workbooks to next session for evaluation . Chief Complaint(s) Language,Cognitive Patient Knowledge/Awareness of GASOLINE TRUCK CRANE OPERATOR Role Good in Treatment Parent/Caretake Knowledge/Awareness of Good GASOLINE TRUCK CRANE OPERATOR Role in Treatment Patient/Caregiver Compliance with Home Good Exercise Program Objective Short Term Goals 1. The pt will perform simple functional household tasks requiring problem-solving ability with min assistance using Ntda-Twxz-Xv-Review strategy to increase independence and safety. 2. The pt will perform moderately complex in-clinic tasks requiring alternating attention with minimal assistance to improve attention skills required for return to education. 3. The pt will perform abstract reasoning tasks of moderate complexity with 80% accuracy to improve executive function skills required for functional ADLs and return to school. 4. The pt will perform simple in-clinic visuospatial tasks requiring planning and execution with 80% accuracy to improve executive function skills necessary for functional ADLs and return to school. 5. The pt will complete mathematical problems ( addition, subtraction, multiplication, division) of moderate complexity with 80% accuracy to improve math skills necessary for functional ADLs and return to school. Skilled Nursing Goals 1. The pt will perform moderately complex functional household tasks requiring problem-solving ability independently using Goal-Plan- Do-Review strategy to increase independence and safety. 2. The pt will perform moderately complex functional household tasks requiring alternating attention (e.g., following a recipe) with minimal assistance to improve attention skills required for return to education. 3. The pt will perform deductive reasoning tasks of moderate complexity with 80% accuracy to improve executive function skills required for functional ADLs and return to school. 4. The pt will perform functional home/community tasks requiring planning and execution (e.g., attending appts, meeting HEP deadlines) with min assistance and 80% accuracy to improve executive function skills necessary for functional ADLs and return to school. 5. The pt will complete moderately complex story problems involving basic math functions and measuring with 80% accuracy to improve ability to perform ADLs and return to school. Treatment Activities Targeted math skills using measuring task in [employer] shane. The pt initially required guhh-wy-yxvi instruction and prompts to perform simple fraction problems involving multiplication. Cueing faded to moderate over course of 6 trials. Task was simplified to multiplication problems using numbers 1-12 via flashcards ( 84% acc). A multiplication table was provided to the pt for home practice. Assessment Patient Response to Treatment Good Rehab Potential Excellent Impairments Identified Cognitive-Linguistic Skills Assessment of Overall Progress Improving Assessment of Improvement The pt was stimulable to math problems using fractions but required mod-max prompts. She expressed being disappointed at not remembering math that she used to be very good at. 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 Reviewed with Patient Goals,Progress Being Made,Home Exercise Program Patient/Caregiver Understanding Good Plan Amount of Therapy Recommended 10 Months Frequency of Treatment Once a Week Length of Session 45 Minutes Treatment Emphasis Next Session Cont targeting math skills Therapeutic Contents Client Education,Cognitive- Linguistic Training,Home Exercise Program,Information Processing,Return to School Provided Patient/Caregiver Instruction Home Exercise Program,Plan of Care,Questions/Concerns Therapy Recommendations Continue with Current Program
--- NOTE | 2021-09-26 15:25 | ST.OPTN ---
Visit Care Team Role Provider Type Bill Monteiro MD Primary Care Provider Non-Staff Address: [address] [facility], [place], [address] Gab Lester MD Attending Provider Non-Staff Referring Provider Address: [place], [address] GEOLOGICAL ENGINEER Treatment Note GEOLOGICAL ENGINEER Treatment Note Start: 08/29/21 13:32 Freq: Status: Active Protocol: Document 09/26/21 18:15 CYNTHIA (Rec: 09/26/21 18:16 CYNTHIA [id number]) Speech Pathology Treatment Note Session Time Visit Start Time 14:30 Visit Stop Time 15:20 Total Visit Minutes 50 Visit Information Visit Number 08/27 Plan of Care Dates 08/29/21 - 12/06/21 Insurance Information [facility] Setting Treatment Setting Outpatient Care Next Note Type Next Note Type Treatment Note General Information Patient History Pt is a 26-yr-old 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 Symptoms began with headache and nausea in October 2017. Pt's parents brought her to [facility], where CT scan revealed a potential brain mass. Pt went to [facility] ED the following day, where MRI revealed no underlying mass but asymmetry in the size of the lateral ventricles, smaller on the left than the right, which may explain the reported concern by prior CT scanning. The pt went home and the following day had grand mal seizure. She was admitted to [facility] ICU for 6 mos ([id number]) with severe dyskinesia and ongoing seizure activity. A coma was induced, and the pt underwent tracheotomy and PEG tube feeding. As she became more alert and able to track and respond to stimuli, she was transferred to the Neuroscience floor of hospital where she remained for ~2 mos until transferring to [facility] facility in [place] for ~ 4 mos. There, she regressed and had increased seizure activity and was returned to [facility] ICU. A Neurologist diagnosed a reaction to medication ( Amantadine). The medication was removed and the pt transferred again to Neuroscience floor and seizures stopped. The pt went home in December 2018 with HH (PT/ OT/ST, Nsg and CG) and continued to show progress at home, starting to walk and speak again in 2019. Her mother is a para-educator and was highly participatory in her rehabilitation. Today the pt is self- ambulatory and communicating independently without notable speech or language deficits. PEG tube and port have been removed. Tracheostomy and medication port remain in place, though neither is actively used. The pt is medically cleared to have them closed/removed, but the patient is currently refusing the procedures; the reason was not given. The pt reports ongoing cognitive impairments, particularly in areas of mathematical skills, problem solving and abstract reasoning . Her mother reported ongoing behavioral changes including anxiety, anger, and lack of social interest. 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 Subjective Observations/Patient Presentation Pt arrived on time and brought a Language Arts poetry journal and Math book with her to demonstrate what she is using for home practice. She finds both books helpful but feels that she needs more guidance to fully learn material. She stated she has not worked with a tutoring clinician besides her mother. Chief Complaint(s) Language,Cognitive Patient Knowledge/Awareness of GEOLOGICAL ENGINEER Role Good in Treatment Parent/Caretake Knowledge/Awareness of Good GEOLOGICAL ENGINEER Role in Treatment Patient/Caregiver Compliance with Home Good Exercise Program Objective Short Term Goals 1. The pt will perform simple functional household tasks requiring problem-solving ability with min assistance using Urxj-Haep-Lp-Review strategy to increase independence and safety. 2. The pt will perform moderately complex in-clinic tasks requiring alternating attention with minimal assistance to improve attention skills required for return to education. 3. The pt will perform abstract reasoning tasks of moderate complexity with 80% accuracy to improve executive function skills required for functional ADLs and return to school. 4. The pt will perform simple in-clinic visuospatial tasks requiring planning and execution with 80% accuracy to improve executive function skills necessary for functional ADLs and return to school. 5. The pt will complete mathematical problems ( addition, subtraction, multiplication, division) of moderate complexity with 80% accuracy to improve math skills necessary for functional ADLs and return to school. Jail Goals 1. The pt will perform moderately complex functional household tasks requiring problem-solving ability independently using Goal-Plan- Do-Review strategy to increase independence and safety. 2. The pt will perform moderately complex functional household tasks requiring alternating attention (e.g., following a recipe) with minimal assistance to improve attention skills required for return to education. 3. The pt will perform deductive reasoning tasks of moderate complexity with 80% accuracy to improve executive function skills required for functional ADLs and return to school. 4. The pt will perform functional home/community tasks requiring planning and execution (e.g., attending appts, meeting HEP deadlines) with min assistance and 80% accuracy to improve executive function skills necessary for functional ADLs and return to school. 5. The pt will complete moderately complex story problems involving basic math functions and measuring with 80% accuracy to improve ability to perform ADLs and return to school. Treatment Activities Assessed pt's books for home practice, which appear appropriate, although would be beneficial if the pt were able to work with a tutoring clinician. Recommended this to the pt, who expressed concern about the potential cost. GEOLOGICAL ENGINEER agreed to look into resources. Continued targeting basic math skills using addition flash cards. The pt completed with 94% acc and frequent need for extended time. She had particular difficulty with addition of 9. Trained pt in identifying a pattern with 9s to simplify task and increase processing speed. The pt was receptive to this with moderate improvement. Needs reinforcement. Frequently the pt became anxious when answers did not come immediately. She was responsive to prompts to relax and take her time to reduce cognitive load. Categorical Naming: The pt named 14 unique animals in 60 sec, with repetition x3 with 2 animals at the end of the task. She was unaware of the repetitions. Initiated education and training in reasoning strategies to increase cognitive organization and increase word /item recall. She was receptive to this and with guidance named 37 animals within subcategories in an untimed task. The pt exhibited WFDs x5. Will include training in word recall strategies in future sessions. Assessment Patient Response to Treatment Good Rehab Potential Excellent Impairments Identified Cognitive-Linguistic Skills Assessment of Overall Progress Improving Assessment of Improvement The pt completed simple addition problems (including numbers 1-10) with good accuracy but reduced processing speed and occasional need to count on fingers. She produced mildly reduced number of items in a familiar and extensive concrete category. This improved with structured training in reasoning skills. She exhibited occ WFDs during this structured task, warranting training in word recall strategies. It was noted that when answers/words do not come immediately to the pt, she exhibits increased anxiety which increases cognitive load and further reduces her processing ability and speed. She was responsive to verbal prompts to relax and take her time, but this needs reinforcement. It is recommended that the pt work with an biology tutor in tandem to Speech Therapy to more directly retrain specific knowledge and skills and speed her recovery and ability to return to school. Will research options and discuss with the pt and her parents. Reviewed with Patient Goals,Progress Being Made,Home Exercise Program Patient/Caregiver Understanding Good Plan Amount of Therapy Recommended 10 Months Frequency of Treatment Once a Week Length of Session 45 Minutes Treatment Emphasis Next Session Cont targeting math skills & word recall strategies Therapeutic Contents Client Education,Cognitive- Linguistic Training,Home Exercise Program,Information Processing,Return to School Provided Patient/Caregiver Instruction Home Exercise Program,Plan of Care,Questions/Concerns Therapy Recommendations Continue with Current Program
--- NOTE | 2021-09-27 11:12 | ST.OPTN ---
Visit Care Team Role Provider Type Bill Monteiro MD Primary Care Provider Non-Staff Address: [address] [facility], [place], [address] Gab Lester MD Attending Provider Non-Staff Referring Provider Address: [facility] [place], [address] JEWEL LATHE OPERATOR Treatment Note JEWEL LATHE OPERATOR Treatment Note Start: 08/29/21 13:32 Freq: Status: Active Protocol: Document 09/26/21 18:15 CYNTHIA (Rec: 09/26/21 18:16 CYNTHIA [id number]) Speech Pathology Treatment Note Session Time Visit Start Time 14:30 Visit Stop Time 15:20 Total Visit Minutes 50 Visit Information Visit Number 08/27 Plan of Care Dates 08/29/21 - 12/06/21 Insurance Information [facility] Setting Treatment Setting Outpatient Care Next Note Type Next Note Type Treatment Note General Information Patient History Pt is a 26-yr-old 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 Symptoms began with headache and nausea in October 2017. Pt's parents brought her to [facility], where CT scan revealed a potential brain mass. Pt went to [facility] ED the following day, where MRI revealed no underlying mass but asymmetry in the size of the lateral ventricles, smaller on the left than the right, which may explain the reported concern by prior CT scanning. The pt went home and the following day had grand mal seizure. She was admitted to [facility] ICU for 6 mos ([id number]) with severe dyskinesia and ongoing seizure activity. A coma was induced, and the pt underwent tracheotomy and PEG tube feeding. As she became more alert and able to track and respond to stimuli, she was transferred to the Neuroscience floor of hospital where she remained for ~2 mos until transferring to [facility] facility in [place] for ~ 4 mos. There, she regressed and had increased seizure activity and was returned to [facility] ICU. A Neurologist diagnosed a reaction to medication ( Amantadine). The medication was removed and the pt transferred again to Neuroscience floor and seizures stopped. The pt went home in December 2018 with HH (PT/ OT/ST, Nsg and CG) and continued to show progress at home, starting to walk and speak again in 2019. Her mother is a para-educator and was highly participatory in her rehabilitation. Today the pt is self- ambulatory and communicating independently without notable speech or language deficits. PEG tube and port have been removed. Tracheostomy and medication port remain in place, though neither is actively used. The pt is medically cleared to have them closed/removed, but the patient is currently refusing the procedures; the reason was not given. The pt reports ongoing cognitive impairments, particularly in areas of mathematical skills, problem solving and abstract reasoning . Her mother reported ongoing behavioral changes including anxiety, anger, and lack of social interest. 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 Subjective Observations/Patient Presentation Pt arrived on time and brought a Language Arts poetry journal and Math book with her to demonstrate what she is using for home practice. She finds both books helpful but feels that she needs more guidance to fully learn material. She stated she has not worked with a accounting/finance tutor besides her mother. Chief Complaint(s) Language,Cognitive Patient Knowledge/Awareness of JEWEL LATHE OPERATOR Role Good in Treatment Parent/Caretake Knowledge/Awareness of Good JEWEL LATHE OPERATOR Role in Treatment Patient/Caregiver Compliance with Home Good Exercise Program Objective Short Term Goals 1. The pt will perform simple functional household tasks requiring problem-solving ability with min assistance using Dmle-Zbny-Ul-Review strategy to increase independence and safety. 2. The pt will perform moderately complex in-clinic tasks requiring alternating attention with minimal assistance to improve attention skills required for return to education. 3. The pt will perform abstract reasoning tasks of moderate complexity with 80% accuracy to improve executive function skills required for functional ADLs and return to school. 4. The pt will perform simple in-clinic visuospatial tasks requiring planning and execution with 80% accuracy to improve executive function skills necessary for functional ADLs and return to school. 5. The pt will complete mathematical problems ( addition, subtraction, multiplication, division) of moderate complexity with 80% accuracy to improve math skills necessary for functional ADLs and return to school. Half-Way Goals 1. The pt will perform moderately complex functional household tasks requiring problem-solving ability independently using Goal-Plan- Do-Review strategy to increase independence and safety. 2. The pt will perform moderately complex functional household tasks requiring alternating attention (e.g., following a recipe) with minimal assistance to improve attention skills required for return to education. 3. The pt will perform deductive reasoning tasks of moderate complexity with 80% accuracy to improve executive function skills required for functional ADLs and return to school. 4. The pt will perform functional home/community tasks requiring planning and execution (e.g., attending appts, meeting HEP deadlines) with min assistance and 80% accuracy to improve executive function skills necessary for functional ADLs and return to school. 5. The pt will complete moderately complex story problems involving basic math functions and measuring with 80% accuracy to improve ability to perform ADLs and return to school. Treatment Activities Assessed pt's books for home practice, which appear appropriate, although would be beneficial if the pt were able to work with a accounting/finance tutor. Recommended this to the pt, who expressed concern about the potential cost. JEWEL LATHE OPERATOR agreed to look into resources. Continued targeting basic math skills using addition flash cards. The pt completed with 94% acc and frequent need for extended time. She had particular difficulty with addition of 9. Trained pt in identifying a pattern with 9s to simplify task and increase processing speed. The pt was receptive to this with moderate improvement. Needs reinforcement. Frequently the pt became anxious when answers did not come immediately. She was responsive to prompts to relax and take her time to reduce cognitive load. Categorical Naming: The pt named 14 unique animals in 60 sec, with repetition x3 with 2 animals at the end of the task. She was unaware of the repetitions. Initiated education and training in reasoning strategies to increase cognitive organization and increase word /item recall. She was receptive to this and with guidance named 37 animals within subcategories in an untimed task. The pt exhibited WFDs x5. Will include training in word recall strategies in future sessions. Assessment Patient Response to Treatment Good Rehab Potential Excellent Impairments Identified Cognitive-Linguistic Skills Assessment of Overall Progress Improving Assessment of Improvement The pt completed simple addition problems (including numbers 1-10) with good accuracy but reduced processing speed and occasional need to count on fingers. She produced mildly reduced number of items in a familiar and extensive concrete category. This improved with structured training in reasoning skills. She exhibited occ WFDs during this structured task, warranting training in word recall strategies. It was noted that when answers/words do not come immediately to the pt, she exhibits increased anxiety which increases cognitive load and further reduces her processing ability and speed. She was responsive to verbal prompts to relax and take her time, but this needs reinforcement. It is recommended that the pt work with an french tutor in tandem to Speech Therapy to more directly retrain specific knowledge and skills and speed her recovery and ability to return to school. Will research options and discuss with the pt and her parents. Reviewed with Patient Goals,Progress Being Made,Home Exercise Program Patient/Caregiver Understanding Good Plan Amount of Therapy Recommended 10 Months Frequency of Treatment Once a Week Length of Session 45 Minutes Treatment Emphasis Next Session Cont targeting math skills & word recall strategies Therapeutic Contents Client Education,Cognitive- Linguistic Training,Home Exercise Program,Information Processing,Return to School Provided Patient/Caregiver Instruction Home Exercise Program,Plan of Care,Questions/Concerns Therapy Recommendations Continue with Current Program
--- NOTE | 2021-10-10 18:17 | ST.OPTN ---
Visit Care Team Role Provider Type Bill Monteiro MD Primary Care Provider Non-Staff Address: [address], [place], [address] Gab Lester MD Attending Provider Non-Staff Referring Provider Address: [facility] [place], [address] FRIT BURNER Treatment Note FRIT BURNER Treatment Note Start: 08/29/21 13:32 Freq: Status: Active Protocol: Document 10/10/21 18:02 CYNTHIA (Rec: 10/10/21 18:17 CYNTHIA [id number]) Speech Pathology Treatment Note Session Time Visit Start Time 13:30 Visit Stop Time 14:20 Total Visit Minutes 50 Visit Information Visit Number 08/27 Plan of Care Dates 08/29/21 - 12/06/21 Insurance Information [facility] Setting Treatment Setting Outpatient Care Visit Type Note Type Treatment Note Next Note Type Next Note Type Treatment Note General Information Patient History Pt is a 26-yr-old 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 Symptoms began with headache and nausea in October 2017. Pt's parents brought her to [facility], where CT scan revealed a potential brain mass. Pt went to [facility] ED the following day, where MRI revealed no underlying mass but asymmetry in the size of the lateral ventricles, smaller on the left than the right, which may explain the reported concern by prior CT scanning. The pt went home and the following day had grand mal seizure. She was admitted to [facility] ICU for 6 mos ([id number]) with severe dyskinesia and ongoing seizure activity. A coma was induced, and the pt underwent tracheotomy and PEG tube feeding. As she became more alert and able to track and respond to stimuli, she was transferred to the Neuroscience floor of hospital where she remained for ~2 mos until transferring to [facility] facility in [place] for ~ 4 mos. There, she regressed and had increased seizure activity and was returned to [facility] ICU. A Neurologist diagnosed a reaction to medication ( Amantadine). The medication was removed and the pt transferred again to Neuroscience floor and seizures stopped. The pt went home in December 2018 with HH (PT/ OT/ST, Nsg and CG) and continued to show progress at home, starting to walk and speak again in 2020. Her mother is a para-educator and was highly participatory in her rehabilitation. Today the pt is self- ambulatory and communicating independently without notable speech or language deficits. PEG tube and port have been removed. Tracheostomy and medication port remain in place, though neither is actively used. The pt is medically cleared to have them closed/removed, but the patient is currently refusing the procedures; the reason was not given. The pt reports ongoing cognitive impairments, particularly in areas of mathematical skills, problem solving and abstract reasoning . Her mother reported ongoing behavioral changes including anxiety, anger, and lack of social interest. 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 Subjective Observations/Patient Presentation Pt arrived on time with completed homework (math and categorical naming). Answers were accurate. Pt reported needing help from her mom to recall how to show work in division problems and needing to look up some items in categories of school subjects. Chief Complaint(s) Language,Cognitive Patient Knowledge/Awareness of FRIT BURNER Role Good in Treatment Parent/Caretake Knowledge/Awareness of Good FRIT BURNER Role in Treatment Patient/Caregiver Compliance with Home Good Exercise Program Objective Short Term Goals 1. The pt will perform simple functional household tasks requiring problem-solving ability with min assistance using Lagp-Biak-Rr-Review strategy to increase independence and safety. 2. The pt will perform moderately complex in-clinic tasks requiring alternating attention with minimal assistance to improve attention skills required for return to education. 3. The pt will perform abstract reasoning tasks of moderate complexity with 80% accuracy to improve executive function skills required for functional ADLs and return to school. 4. The pt will perform simple in-clinic visuospatial tasks requiring planning and execution with 80% accuracy to improve executive function skills necessary for functional ADLs and return to school. 5. The pt will complete mathematical problems ( addition, subtraction, multiplication, division) of moderate complexity with 80% accuracy to improve math skills necessary for functional ADLs and return to school. Alf Goals 1. The pt will perform moderately complex functional household tasks requiring problem-solving ability independently using Goal-Plan- Do-Review strategy to increase independence and safety. 2. The pt will perform moderately complex functional household tasks requiring alternating attention (e.g., following a recipe) with minimal assistance to improve attention skills required for return to education. 3. The pt will perform deductive reasoning tasks of moderate complexity with 80% accuracy to improve executive function skills required for functional ADLs and return to school. 4. The pt will perform functional home/community tasks requiring planning and execution (e.g., attending appts, meeting HEP deadlines) with min assistance and 80% accuracy to improve executive function skills necessary for functional ADLs and return to school. 5. The pt will complete moderately complex story problems involving basic math functions and measuring with 80% accuracy to improve ability to perform ADLs and return to school. Treatment Activities Assessed pt's homework and provided skilled feedback. The pt completed 20 1- and 2- digit math problems consisting of a mixture of addition, subtraction, multiplication and division in .4. This targeted math skills, alternating attention, and mental flexibility. The pt initially answered like problems (addition), but was instructed to complete the problems in order. She required reference to multiplication table x4 and FRIT BURNER assistance with a double digit subtraction problem. After completion of the task, instruction was provided in subtraction steps and home problems provided. The pt demonstrated understanding of concepts and steps by completing problems independently and accurately. Assessment Patient Response to Treatment Good Rehab Potential Excellent Assessment of Overall Progress Improving Assessment of Improvement The pt is making progress in simple math skills necessary to advance her skills to levels required to return to school. She continues to be reliant on a multiplication table and exhibited slow processing skills, particularly in transitioning between different types of math problems (alternating attention/mental flexibility). Today's scores will serve as a good baseline for progress. Reviewed with Patient Goals,Progress Being Made,Home Exercise Program Patient/Caregiver Understanding Good Plan Amount of Therapy Recommended 10 Months Frequency of Treatment Once a Week Length of Session 45 Minutes Treatment Emphasis Next Session Cont targeting math skills & word recall strategies Therapeutic Contents Client Education,Cognitive- Linguistic Training,Home Exercise Program,Information Processing,Return to School Provided Patient/Caregiver Instruction Home Exercise Program,Plan of Care,Questions/Concerns Therapy Recommendations Continue with Current Program
--- NOTE | 2021-10-17 17:42 | ST.OPTN ---
Visit Care Team Role Provider Type Bill Monteiro MD Primary Care Provider Non-Staff Address: [address] [facility], [place], [address] Gab Lester MD Attending Provider Non-Staff Referring Provider Address: [facility] [place], [address] FORMULATION TECHNICIAN Treatment Note FORMULATION TECHNICIAN Treatment Note Start: 08/29/21 13:32 Freq: Status: Active Protocol: Document 10/17/21 14:27 CYNTHIA (Rec: 10/17/21 14:30 CYNTHIA [id number]) Speech Pathology Treatment Note Session Time Visit Start Time 13:30 Visit Stop Time 14:15 Total Visit Minutes 45 Visit Information Visit Number 09/27 Plan of Care Dates 08/29/21 - 12/06/21 Insurance Information [facility] Setting Treatment Setting Outpatient Care Visit Type Note Type Treatment Note Next Note Type Next Note Type Treatment Note General Information Patient History Pt is a 26-yr-old 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 Symptoms began with headache and nausea in October 2017. Pt's parents brought her to [facility], where CT scan revealed a potential brain mass. Pt went to [facility] ED the following day, where MRI revealed no underlying mass but asymmetry in the size of the lateral ventricles, smaller on the left than the right, which may explain the reported concern by prior CT scanning. The pt went home and the following day had grand mal seizure. She was admitted to [facility] ICU for 6 mos ([id number]) with severe dyskinesia and ongoing seizure activity. A coma was induced, and the pt underwent tracheotomy and PEG tube feeding. As she became more alert and able to track and respond to stimuli, she was transferred to the Neuroscience floor of hospital where she remained for ~2 mos until transferring to [facility] facility in [place] for ~ 4 mos. There, she regressed and had increased seizure activity and was returned to [facility] ICU. A Neurologist diagnosed a reaction to medication ( Amantadine). The medication was removed and the pt transferred again to Neuroscience floor and seizures stopped. The pt went home in December 2018 with HH (PT/ OT/ST, Nsg and CG) and continued to show progress at home, starting to walk and speak again in 2020. Her mother is a para-educator and was highly participatory in her rehabilitation. Today the pt is self- ambulatory and communicating independently without notable speech or language deficits. PEG tube and port have been removed. Tracheostomy and medication port remain in place, though neither is actively used. The pt is medically cleared to have them closed/removed, but the patient is currently refusing the procedures; the reason was not given. The pt reports ongoing cognitive impairments, particularly in areas of mathematical skills, problem solving and abstract reasoning . Her mother reported ongoing behavioral changes including anxiety, anger, and lack of social interest. 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 Subjective Observations/Patient Presentation Pt arrived on time with completed homework. Answers were accurate. Pt also brought her [employer] game player with a downloaded cognitive game program. Chief Complaint(s) Language,Cognitive Patient Knowledge/Awareness of FORMULATION TECHNICIAN Role Good in Treatment Parent/Caretake Knowledge/Awareness of Good FORMULATION TECHNICIAN Role in Treatment Patient/Caregiver Compliance with Home Good Exercise Program Objective Short Term Goals 1. The pt will perform simple functional household tasks requiring problem-solving ability with min assistance using Magm-Cale-Nc-Review strategy to increase independence and safety. 2. The pt will perform moderately complex in-clinic tasks requiring alternating attention with minimal assistance to improve attention skills required for return to education. 3. The pt will perform abstract reasoning tasks of moderate complexity with 80% accuracy to improve executive function skills required for functional ADLs and return to school. 4. The pt will perform simple in-clinic visuospatial tasks requiring planning and execution with 80% accuracy to improve executive function skills necessary for functional ADLs and return to school. 5. The pt will complete mathematical problems ( addition, subtraction, multiplication, division) of moderate complexity with 80% accuracy to improve math skills necessary for functional ADLs and return to school. Skilled Nursing Goals 1. The pt will perform moderately complex functional household tasks requiring problem-solving ability independently using Goal-Plan- Do-Review strategy to increase independence and safety. 2. The pt will perform moderately complex functional household tasks requiring alternating attention (e.g., following a recipe) with minimal assistance to improve attention skills required for return to education. 3. The pt will perform deductive reasoning tasks of moderate complexity with 80% accuracy to improve executive function skills required for functional ADLs and return to school. 4. The pt will perform functional home/community tasks requiring planning and execution (e.g., attending appts, meeting HEP deadlines) with min assistance and 80% accuracy to improve executive function skills necessary for functional ADLs and return to school. 5. The pt will complete moderately complex story problems involving basic math functions and measuring with 80% accuracy to improve ability to perform ADLs and return to school. Treatment Activities Using [employer] Brain tasks, the pt completed task requiring visual analysis, deductive reasoning, selective and alternating attention skills, mental manipulation, and memory. The pt exhibited slow processing speeds in identifying the number of blocks present by counting blocks by ones or twos only. Initially, the pt completed 13 tasks in 60 sec in 2/2 trials with 69% and 85% acc, respectively. Education and training was provided in visual chunking of objects with use of addition and/or multiplication to increase processing speed. Using this strategy, the pt increased accuracy to 90%, although latency increased with the pt completing only 10 tasks. Anticipate latency will improve with practice. Pt completed task in which she identified pieces that formed a given shape with 71% acc increasing with practice to 88 % acc and increased complexity of task. Consulted with the pt RE her goal of returning to school and what she thought she needed to accomplish to be ready for that. She responded that the only holding her back was having the courage to return to the hospital for outpatient procedures to close her trach and have the port removed. She expressed significant fear despite knowing these are very fast and routine procedures. Agreed to discuss more at next session. Assessment Patient Response to Treatment Good Rehab Potential Excellent Progress Towards Goals Excellent Progress,Good Progress Assessment of Overall Progress Improving Assessment of Improvement The pt is making very good progress in simple math skills . She required direction in applying these skills to a new task, after which her accuracy of the task significantly improved. She is using a computerized program for home practice that targets memory, visual processing and analysis, deductive and abstract reasoning, and mental manipulation. She is highly motivated by the tasks and today demonstrated significant improvement with minimal practice. Given the rate of the pt's progress to date, prognosis for return to her education program is good, though it may initially require a slower than typical pace and supportive resources, such as extended time for tests, etc., may be required. The pt appears to have PTSD symptoms that are preventing her from returning to the hospital to have her trach closed and port removed, steps that she sees as necessary before she is able to return to school. Referral to a mental health couselor may be warranted to help her address these fears. Reviewed with Patient Goals,Progress Being Made,Home Exercise Program Patient/Caregiver Understanding Good Plan Amount of Therapy Recommended 10 Months Frequency of Treatment Once a Week Length of Session 45 Minutes Treatment Emphasis Next Session Cont targeting math skills & word recall strategies Therapeutic Contents Client Education,Cognitive- Linguistic Training,Home Exercise Program,Information Processing,Return to School Provided Patient/Caregiver Instruction Home Exercise Program,Plan of Care,Questions/Concerns Therapy Recommendations Continue with Current Program
--- NOTE | 2021-10-24 18:29 | ST.OPTN ---
Visit Care Team Role Provider Type Bill Monteiro MD Primary Care Provider Non-Staff Address: [address] [facility], [place], [address] Gab Lester MD Attending Provider Non-Staff Referring Provider Address: [facility] [place], [address] WINDSCREEN FITTER Treatment Note WINDSCREEN FITTER Treatment Note Start: 08/29/21 13:32 Freq: Status: Active Protocol: Document 10/24/21 18:10 CYNTHIA (Rec: 10/24/21 18:10 CYNTHIA [id number]) Speech Pathology Treatment Note Session Time Visit Start Time 13:30 Visit Stop Time 14:25 Total Visit Minutes 55 Visit Information Visit Number 10/27 Plan of Care Dates 08/29/21 - 12/06/21 Insurance Information [facility] Setting Treatment Setting Outpatient Care Visit Type Note Type Treatment Note Next Note Type Next Note Type Treatment Note General Information Patient History Pt is a 26-yr-old 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 Symptoms began with headache and nausea in October 2017. Pt's parents brought her to [facility], where CT scan revealed a potential brain mass. Pt went to [facility] ED the following day, where MRI revealed no underlying mass but asymmetry in the size of the lateral ventricles, smaller on the left than the right, which may explain the reported concern by prior CT scanning. The pt went home and the following day had grand mal seizure. She was admitted to [facility] ICU for 6 mos ([id number]) with severe dyskinesia and ongoing seizure activity. A coma was induced, and the pt underwent tracheotomy and PEG tube feeding. As she became more alert and able to track and respond to stimuli, she was transferred to the Neuroscience floor of hospital where she remained for ~2 mos until transferring to [facility] facility in [place] for ~ 4 mos. There, she regressed and had increased seizure activity and was returned to [facility] ICU. A Neurologist diagnosed a reaction to medication ( Amantadine). The medication was removed and the pt transferred again to Neuroscience floor and seizures stopped. The pt went home in December 2018 with HH (PT/ OT/ST, Nsg and CG) and continued to show progress at home, starting to walk and speak again in 2020. Her mother is a para-educator and was highly participatory in her rehabilitation. Today the pt is self- ambulatory and communicating independently without notable speech or language deficits. PEG tube and port have been removed. Tracheostomy and medication port remain in place, though neither is actively used. The pt is medically cleared to have them closed/removed, but the patient is currently refusing the procedures; the reason was not given. The pt reports ongoing cognitive impairments, particularly in areas of mathematical skills, problem solving and abstract reasoning . Her mother reported ongoing behavioral changes including anxiety, anger, and lack of social interest. 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 Subjective Others Present Other Observations/Patient Presentation Pt arrived on time accompanied by her mom, who attended part of the session. Chief Complaint(s) Language,Cognitive Patient Knowledge/Awareness of WINDSCREEN FITTER Role Good in Treatment Parent/Caretake Knowledge/Awareness of Good WINDSCREEN FITTER Role in Treatment Patient/Caregiver Compliance with Home Good Exercise Program Objective Short Term Goals 1. The pt will perform simple functional household tasks requiring problem-solving ability with min assistance using Imfn-Smfh-Ax-Review strategy to increase independence and safety. 2. The pt will perform moderately complex in-clinic tasks requiring alternating attention with minimal assistance to improve attention skills required for return to education. 3. The pt will perform abstract reasoning tasks of moderate complexity with 80% accuracy to improve executive function skills required for functional ADLs and return to school. 4. The pt will perform simple in-clinic visuospatial tasks requiring planning and execution with 80% accuracy to improve executive function skills necessary for functional ADLs and return to school. 5. The pt will complete mathematical problems ( addition, subtraction, multiplication, division) of moderate complexity with 80% accuracy to improve math skills necessary for functional ADLs and return to school. Electronics Engineering Manager Goals 1. The pt will perform moderately complex functional household tasks requiring problem-solving ability independently using Goal-Plan- Do-Review strategy to increase independence and safety. 2. The pt will perform moderately complex functional household tasks requiring alternating attention (e.g., following a recipe) with minimal assistance to improve attention skills required for return to education. 3. The pt will perform deductive reasoning tasks of moderate complexity with 80% accuracy to improve executive function skills required for functional ADLs and return to school. 4. The pt will perform functional home/community tasks requiring planning and execution (e.g., attending appts, meeting HEP deadlines) with min assistance and 80% accuracy to improve executive function skills necessary for functional ADLs and return to school. 5. The pt will complete moderately complex story problems involving basic math functions and measuring with 80% accuracy to improve ability to perform ADLs and return to school. Treatment Activities Consulted with pt RE goals after recovery and steps necessary toward meeting those goals. She identified finishing her degree in Culinary Arts, getting a job and learning to drive as goals . She reported that she is completing all chores at home without difficulty, although she often procrastinates because she prefers to complete them on her own time vs being told. She also is successfully cooking meals and baking items based on YouTube demonstrations, learning new techniques, planning, organizing ingredients and completing the tasks independenly. She stated she occasionally gets headaches but these are significantly fewer than in past, and she is not feeling overwhelmed by visual or auditory stimula. She completes errands with her family, including tasks such as shopping at [employer] and the mall with out difficulty. Her primary obstacle in returning to school, in her opinion, is fear of the surgery required to close her trach and remove the port. Her mother joined the conversation and confirmed the pt's reports, stating further that the pt is able to learn and operate complex tech tasks involving multiple devices. Given the pt's current success in functional activities and progress being made with academic skills, such as math, this WINDSCREEN FITTER suggested that perhaps an elementary math tutor may be more appropriate to assist the pt in relearning academic and study skills necessary to return to school, vs Speech Therapy. Also recommended the pt be seen by a mental health provider to assist her in processing her previous experience in the hospital setting to overcome her fear of surgery and be able to complete those needed to close her trach and remove the port . Both the pt and her mother were open to these recommendations. WINDSCREEN FITTER agreed to request a referral to mental health care from the pt's Neurologist. WINDSCREEN FITTER and mother agreed to investigate tutoring options. All agreed to meet again next week and discuss these options further. Assessment Patient Response to Treatment Good Rehab Potential Excellent Progress Towards Goals Excellent Progress,Good Progress Assessment of Overall Progress Improving Assessment of Improvement The pt has resumed many of her functional activities, both simple and complex, and is participating in activities at home and in her community. She continues to make progress with academic skills with ongoing practice. The pt may benefit more from an elementary math tutor vs Speech Therapy to most quickly recover skills needed to return to education, as she appears to be learning new tasks easily, planning, organizing and carrying out activities without need of external support, and demonstrating attitudes such as procrastination that are not uncommon within normal populations vs difficulty remembering to do or understanding how to complete household tasks. It is highly recommended that the pt work with a mental health provider to process her traumatic experiences related to hospitals and overcome her fear of medical procedures. This is important not only to complete surgeries that are currently needed, but to prevent further emotional trauma should the pt need such services, especially if emergent, in her long future. Both the pt and her mother were in agreement with this, and a request for a referral will be made. Reviewed with Patient Goals,Progress Being Made,Home Exercise Program Patient/Caregiver Understanding Good Plan Amount of Therapy Recommended 10 Months Frequency of Treatment Once a Week Length of Session 45 Minutes Treatment Emphasis Next Session Cont targeting math skills & word recall strategies Therapeutic Contents Client Education,Cognitive- Linguistic Training,Home Exercise Program,Information Processing,Return to School Provided Patient/Caregiver Instruction Home Exercise Program,Plan of Care,Questions/Concerns Therapy Recommendations Continue with Current Program Other Referrals Mental Health
--- NOTE | 2021-10-31 18:29 | ST.OPTN ---
Visit Care Team Role Provider Type Bill Monteiro MD Primary Care Provider Non-Staff Address: [address] [facility], [place], [address] Gab Lester MD Attending Provider Non-Staff Referring Provider Address: [facility] [place], [address] CELL STRIPPER FINAL Treatment Note CELL STRIPPER FINAL Treatment Note Start: 08/29/21 13:32 Freq: Status: Active Protocol: Document 10/31/21 14:26 CYNTHIA (Rec: 10/31/21 14:31 CYNTHIA [id number]) Speech Pathology Treatment Note Session Time Visit Start Time 13:30 Visit Stop Time 14:15 Total Visit Minutes 45 Visit Information Visit Number 11/27 Plan of Care Dates 08/29/21 - 12/06/21 Insurance Information [facility] Setting Treatment Setting Outpatient Care Visit Type Note Type Treatment Note Next Note Type Next Note Type Treatment Note General Information Patient History Pt is a 26-yr-old 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 Symptoms began with headache and nausea in October 2017. Pt's parents brought her to , where CT scan revealed a potential brain mass. Pt went to [facility] ED the following day, where MRI revealed no underlying mass but asymmetry in the size of the lateral ventricles, smaller on the left than the right, which may explain the reported concern by prior CT scanning. The pt went home and the following day had grand mal seizure. She was admitted to [facility] ICU for 6 mos ([id number]) with severe dyskinesia and ongoing seizure activity. A coma was induced, and the pt underwent tracheotomy and PEG tube feeding. As she became more alert and able to track and respond to stimuli, she was transferred to the Neuroscience floor of hospital where she remained for ~2 mos until transferring to [facility] facility in [place] for ~ 4 mos. There, she regressed and had increased seizure activity and was returned to [facility] ICU. A Neurologist diagnosed a reaction to medication ( Amantadine). The medication was removed and the pt transferred again to Neuroscience floor and seizures stopped. The pt went home in December 2018 with HH (PT/ OT/ST, Nsg and CG) and continued to show progress at home, starting to walk and speak again in 2020. Her mother is a para-educator and was highly participatory in her rehabilitation. Today the pt is self- ambulatory and communicating independently without notable speech or language deficits. PEG tube and port have been removed. Tracheostomy and medication port remain in place, though neither is actively used. The pt is medically cleared to have them closed/removed, but the patient is currently refusing the procedures; the reason was not given. The pt reports ongoing cognitive impairments, particularly in areas of mathematical skills, problem solving and abstract reasoning . Her mother reported ongoing behavioral changes including anxiety, anger, and lack of social interest. Prior to these medical events, the pt completed one year of [employer] 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 Subjective Others Present Additional Therapist,Other Observations/Patient Presentation Pt arrived on time accompanied by her mom, who attended part of the session. Followed up on discussion from last week RE finding a computer meteorologist to assist with pt's learning. Suggestions were made. Pt/ mother will continue to look. CELL STRIPPER FINAL agreed to send email summary to the pt RE current skills and rationale for computer meteorologist to assist. Chief Complaint(s) Language,Cognitive Patient Knowledge/Awareness of CELL STRIPPER FINAL Role Good in Treatment Parent/Caretake Knowledge/Awareness of Good CELL STRIPPER FINAL Role in Treatment Patient/Caregiver Compliance with Home Good Exercise Program Objective Short Term Goals 1. The pt will perform simple functional household tasks requiring problem-solving ability with min assistance using Bfjo-Wiqr-Cu-Review strategy to increase independence and safety. 2. The pt will perform moderately complex in-clinic tasks requiring alternating attention with minimal assistance to improve attention skills required for return to education. 3. The pt will perform abstract reasoning tasks of moderate complexity with 80% accuracy to improve executive function skills required for functional ADLs and return to school. 4. The pt will perform simple in-clinic visuospatial tasks requiring planning and execution with 80% accuracy to improve executive function skills necessary for functional ADLs and return to school. 5. The pt will complete mathematical problems ( addition, subtraction, multiplication, division) of moderate complexity with 80% accuracy to improve math skills necessary for functional ADLs and return to school. Usp Goals 1. The pt will perform moderately complex functional household tasks requiring problem-solving ability independently using Goal-Plan- Do-Review strategy to increase independence and safety. 2. The pt will perform moderately complex functional household tasks requiring alternating attention (e.g., following a recipe) with minimal assistance to improve attention skills required for return to education. 3. The pt will perform deductive reasoning tasks of moderate complexity with 80% accuracy to improve executive function skills required for functional ADLs and return to school. 4. The pt will perform functional home/community tasks requiring planning and execution (e.g., attending appts, meeting HEP deadlines) with min assistance and 80% accuracy to improve executive function skills necessary for functional ADLs and return to school. 5. The pt will complete moderately complex story problems involving basic math functions and measuring with 80% accuracy to improve ability to perform ADLs and return to school. Treatment Activities Reviewed patterns with multiplication of 9s. Pt verbalized and demonstrated understanding, correctly solving multiplication of 1-9 x9 with 75% acc. Using multiplication flashcards of single and double digit numbers, the pt solved problems independently with 76%, increased up to 89% with extended time or visual prompts. Primary mistakes were double digits, particularly against 12. With instruction and practice, pt recalled steps to multiplying double digits. Problems provided as home practice for reinforcement. Assessment Patient Response to Treatment Good Rehab Potential Excellent Progress Towards Goals Excellent Progress,Good Progress Assessment of Overall Progress Improving Assessment of Improvement Pt continues to make progress with functional activities, particularly tech-based activities and reading/writing . Math skills continue to be less strong, though she is improving with basic math, decreasing response time with most single digit trials. Required re-education of double digit multiplication and improved performance after when able to write problems out on paper. Continue to recommend consultation with an timber sizer for academic testing and training to improve skills to return to school. Reviewed with Patient Goals,Progress Being Made,Home Exercise Program Patient/Caregiver Understanding Good Plan Amount of Therapy Recommended 10 Months Frequency of Treatment Once a Week Length of Session 45 Minutes Treatment Emphasis Next Session Cont targeting math skills & word recall strategies Therapeutic Contents Client Education,Cognitive- Linguistic Training,Home Exercise Program,Information Processing,Return to School Provided Patient/Caregiver Instruction Home Exercise Program,Plan of Care,Questions/Concerns Therapy Recommendations Continue with Current Program Other Referrals Mental Health
--- NOTE | 2021-11-07 11:47 | ST.OPTN ---
Visit Care Team Role Provider Type Bill Monteiro MD Primary Care Provider Non-Staff Address: [address] [facility], [place], [address] Gab Lester MD Attending Provider Non-Staff Referring Provider Address: [facility] [place], [address] CHEMICAL PROCESS ANALYST Treatment Note CHEMICAL PROCESS ANALYST Treatment Note Start: 08/29/21 13:32 Freq: Status: Active Protocol: Document 11/07/21 11:36 CYNTHIA (Rec: 11/14/21 11:47 CYNTHIA [id number]) Speech Pathology Treatment Note Session Time Visit Start Time 13:30 Visit Stop Time 14:15 Total Visit Minutes 45 Visit Information Visit Number 11/27 Plan of Care Dates 08/29/21 - 12/06/21 Insurance Information [facility] Setting Treatment Setting Outpatient Care Visit Type Note Type Treatment Note Next Note Type Next Note Type Treatment Note General Information Patient History Pt is a 26-yr-old 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 Symptoms began with headache and nausea in October 2017. Pt's parents brought her to [facility], where CT scan revealed a potential brain mass. Pt went to [facility] ED the following day, where MRI revealed no underlying mass but asymmetry in the size of the lateral ventricles, smaller on the left than the right, which may explain the reported concern by prior CT scanning. The pt went home and the following day had grand mal seizure. She was admitted to [facility] ICU for 6 mos ([id number]) with severe dyskinesia and ongoing seizure activity. A coma was induced, and the pt underwent tracheotomy and PEG tube feeding. As she became more alert and able to track and respond to stimuli, she was transferred to the Neuroscience floor of hospital where she remained for ~2 mos until transferring to [facility] facility in [place] for ~ 4 mos. There, she regressed and had increased seizure activity and was returned to [facility] ICU. A Neurologist diagnosed a reaction to medication ( Amantadine). The medication was removed and the pt transferred again to Neuroscience floor and seizures stopped. The pt went home in December 2018 with HH (PT/ OT/ST, Nsg and CG) and continued to show progress at home, starting to walk and speak again in 2020. Her mother is a para-educator and was highly participatory in her rehabilitation. Today the pt is self- ambulatory and communicating independently without notable speech or language deficits. PEG tube and port have been removed. Tracheostomy and medication port remain in place, though neither is actively used. The pt is medically cleared to have them closed/removed, but the patient is currently refusing the procedures; the reason was not given. The pt reports ongoing cognitive impairments, particularly in areas of mathematical skills, problem solving and abstract reasoning . Her mother reported ongoing behavioral changes including anxiety, anger, and lack of social interest. 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 Subjective Others Present Student Observations/Patient Presentation Pt arrived on time accompanied by her mom, who did not attend the session but was consulted after RE attempts to find a test preparation tutor for the pt. No new complaints. The pt continues to be fully compliant with HEP. Chief Complaint(s) Language,Cognitive Patient Knowledge/Awareness of CHEMICAL PROCESS ANALYST Role Good in Treatment Parent/Caretake Knowledge/Awareness of Good CHEMICAL PROCESS ANALYST Role in Treatment Patient/Caregiver Compliance with Home Good Exercise Program Objective Short Term Goals 1. The pt will perform simple functional household tasks requiring problem-solving ability with min assistance using Ezog-Iclq-Fa-Review strategy to increase independence and safety. 2. The pt will perform moderately complex in-clinic tasks requiring alternating attention with minimal assistance to improve attention skills required for return to education. 3. The pt will perform abstract reasoning tasks of moderate complexity with 80% accuracy to improve executive function skills required for functional ADLs and return to school. 4. The pt will perform simple in-clinic visuospatial tasks requiring planning and execution with 80% accuracy to improve executive function skills necessary for functional ADLs and return to school. 5. The pt will complete mathematical problems ( addition, subtraction, multiplication, division) of moderate complexity with 80% accuracy to improve math skills necessary for functional ADLs and return to school. Snf Goals 1. The pt will perform moderately complex functional household tasks requiring problem-solving ability independently using Goal-Plan- Do-Review strategy to increase independence and safety. 2. The pt will perform moderately complex functional household tasks requiring alternating attention (e.g., following a recipe) with minimal assistance to improve attention skills required for return to education. 3. The pt will perform deductive reasoning tasks of moderate complexity with 80% accuracy to improve executive function skills required for functional ADLs and return to school. 4. The pt will perform functional home/community tasks requiring planning and execution (e.g., attending appts, meeting HEP deadlines) with min assistance and 80% accuracy to improve executive function skills necessary for functional ADLs and return to school. 5. The pt will complete moderately complex story problems involving basic math functions and measuring with 80% accuracy to improve ability to perform ADLs and return to school. Treatment Activities Continued training division. The pt completed problems via flashcards with 90% accuracy. Pt demonstrated increased speed overall. Skilled feedback was provided RE mental flexibility and training in reverse problem solving (multiplication and division relationship). The pt was receptive and demonstrated understanding by accurately completing additional problems. This CHEMICAL PROCESS ANALYST generated a written letter of recommendation for academic assessment and tutoring addressed and given to the pt directly with signed [employer] form in order to assist her in finding a test preparation tutor. Both the pt and her mother were receptive to and appreciative of this. Assessment Patient Response to Treatment Excellent Rehab Potential Excellent Progress Towards Goals Excellent Progress,Good Progress Assessment of Overall Progress Improving Assessment of Improvement The pt is making excellent progress toward goals, completing complex functional tasks at home and improving accuracy and speed with basic math skills required to return to school. In response to training, she demonstrated understanding of and ability to perform mental flexibility tasks. Reviewed with Patient Goals,Progress Being Made,Home Exercise Program Patient/Caregiver Understanding Good Plan Amount of Therapy Recommended 10 Months Frequency of Treatment Once a Week Length of Session 45 Minutes Treatment Emphasis Next Session Cont targeting math skills & word recall strategies Therapeutic Contents Client Education,Cognitive- Linguistic Training,Home Exercise Program,Information Processing,Return to School Provided Patient/Caregiver Instruction Home Exercise Program,Plan of Care,Questions/Concerns Therapy Recommendations Continue with Current Program Other Referrals Mental Health
--- NOTE | 2021-11-14 14:53 | ST.OPTN ---
Visit Care Team Role Provider Type Bill Monteiro MD Primary Care Provider Non-Staff Address: [address] [facility], [place], [address] Gab Lester MD Attending Provider Non-Staff Referring Provider Address: [address] [place], [address] AUTOMOBILE ASSEMBLY SUPERVISOR Treatment Note AUTOMOBILE ASSEMBLY SUPERVISOR Treatment Note Start: 08/29/21 13:32 Freq: Status: Active Protocol: Document 11/14/21 14:08 CYNTHIA (Rec: 11/14/21 14:18 CYNTHIA [id number]) Speech Pathology Treatment Note Session Time Visit Start Time 13:30 Visit Stop Time 14:15 Total Visit Minutes 45 Visit Information Visit Number 02/27 Plan of Care Dates 08/29/21 - 12/06/21 Insurance Information [facility] Setting Treatment Setting Outpatient Care Visit Type Note Type Treatment Note Next Note Type Next Note Type Treatment Note General Information Patient History Pt is a 26-yr-old 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 Symptoms began with headache and nausea in October 2017. Pt's parents brought her to [facility], where CT scan revealed a potential brain mass. Pt went to [facility] ED the following day, where MRI revealed no underlying mass but asymmetry in the size of the lateral ventricles, smaller on the left than the right, which may explain the reported concern by prior CT scanning. The pt went home and the following day had grand mal seizure. She was admitted to [facility] ICU for 6 mos ([id number]) with severe dyskinesia and ongoing seizure activity. A coma was induced, and the pt underwent tracheotomy and PEG tube feeding. As she became more alert and able to track and respond to stimuli, she was transferred to the Neuroscience floor of hospital where she remained for ~2 mos until transferring to [facility] facility in [place] for ~ 4 mos. There, she regressed and had increased seizure activity and was returned to [facility] ICU. A Neurologist diagnosed a reaction to medication ( Amantadine). The medication was removed and the pt transferred again to Neuroscience floor and seizures stopped. The pt went home in December 2018 with HH (PT/ OT/ST, Nsg and CG) and continued to show progress at home, starting to walk and speak again in 2020. Her mother is a para-educator and was highly participatory in her rehabilitation. Today the pt is self- ambulatory and communicating independently without notable speech or language deficits. PEG tube and port have been removed. Tracheostomy and medication port remain in place, though neither is actively used. The pt is medically cleared to have them closed/removed, but the patient is currently refusing the procedures; the reason was not given. The pt reports ongoing cognitive impairments, particularly in areas of mathematical skills, problem solving and abstract reasoning . Her mother reported ongoing behavioral changes including anxiety, anger, and lack of social interest. 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 Subjective Others Present Student Observations/Patient Presentation Pt arrived on time accompanied by her dad, who was present throughout the session and participated in discussions RE POC. Chief Complaint(s) Language,Cognitive Patient Knowledge/Awareness of AUTOMOBILE ASSEMBLY SUPERVISOR Role Good in Treatment Parent/Caretake Knowledge/Awareness of Good AUTOMOBILE ASSEMBLY SUPERVISOR Role in Treatment Patient/Caregiver Compliance with Home Good Exercise Program Objective Short Term Goals 1. The pt will perform simple functional household tasks requiring problem-solving ability with min assistance using Dxae-Ovev-Ay-Review strategy to increase independence and safety. 2. The pt will perform moderately complex in-clinic tasks requiring alternating attention with minimal assistance to improve attention skills required for return to education. 3. The pt will perform abstract reasoning tasks of moderate complexity with 80% accuracy to improve executive function skills required for functional ADLs and return to school. 4. The pt will perform simple in-clinic visuospatial tasks requiring planning and execution with 80% accuracy to improve executive function skills necessary for functional ADLs and return to school. 5. The pt will complete mathematical problems ( addition, subtraction, multiplication, division) of moderate complexity with 80% accuracy to improve math skills necessary for functional ADLs and return to school. Hospice Educator Goals 1. The pt will perform moderately complex functional household tasks requiring problem-solving ability independently using Goal-Plan- Do-Review strategy to increase independence and safety. 2. The pt will perform moderately complex functional household tasks requiring alternating attention (e.g., following a recipe) with minimal assistance to improve attention skills required for return to education. 3. The pt will perform deductive reasoning tasks of moderate complexity with 80% accuracy to improve executive function skills required for functional ADLs and return to school. 4. The pt will perform functional home/community tasks requiring planning and execution (e.g., attending appts, meeting HEP deadlines) with min assistance and 80% accuracy to improve executive function skills necessary for functional ADLs and return to school. 5. The pt will complete moderately complex story problems involving basic math functions and measuring with 80% accuracy to improve ability to perform ADLs and return to school. Treatment Activities Consulted with pt/father about the pt's current function, ST POC, and recommendation for academic asessment and training to assist the pt in strengthening academic skills needed for return to school. Pt/father were in agreement with this recommendation and agreed to consult with [facility] RE placement tests and adult education courses. The pt and her father identified the pt's forgetfulness around activities related to her schedule, including planning and carrying out plans with friends as well as taking her medication on time. Both she and her father noted these were also challenges for the pt prior to her injury. She currently uses a calendar and alarms on her phone for these tasks but is not in a routine of checking her schedule and tends to turn off her alarm without taking medications, resulting in reliance on her mother to remind her to do so. AUTOMOBILE ASSEMBLY SUPERVISOR recommended establishing a morning and evening routine of looking a the day ahead ( current or next) and recommended hitting Snooze on her phone alarm until she has swallowed her medication, at which time she can turn off the alarm. The pt agreed to this, and her father agreed to assisting her initially in establishing and following these recommendations. Targeted numeric problem solving and mental flexibility by working with fractions via [employer] cognitive shane. Trained pt in calculating 1/3 of given amounts. Pt required max assistance to complete tasks. Recommended home practice with use of pen and paper and/or calculator to assist. The shane does provide instruction and examples to assist learning. 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 Assessment Patient Response to Treatment Excellent Rehab Potential Excellent Progress Towards Goals Excellent Progress,Good Progress Assessment of Overall Progress Improving Assessment of Improvement The pt continues to make excellent progress toward goals. She and her father were receptive to all feedback and participatory in identifying areas of ongoing challenge for the pt, including scheduling challenges that appear to have been present at the pt's baseline. They were in agreement with recommendations . The pt demonstrated difficulty calculating fractions. She was stimulable to training but needs further training. Reviewed with Patient Goals,Progress Being Made,Home Exercise Program Patient/Caregiver Understanding Good Plan Amount of Therapy Recommended 10 Months Frequency of Treatment Once a Week Length of Session 45 Minutes Treatment Emphasis Next Session Cont targeting math skills. F/ U on schedule recommendations Therapeutic Contents Client Education,Cognitive- Linguistic Training,Home Exercise Program,Information Processing,Return to School Provided Patient/Caregiver Instruction Home Exercise Program,Plan of Care,Questions/Concerns Therapy Recommendations Continue with Current Program Other Referrals Mental Health; Academic placement assessment and education
--- NOTE | 2021-11-21 16:44 | ST.OPTN ---
Visit Care Team Role Provider Type Bill Monteiro MD Primary Care Provider Non-Staff Address: [address] [place], [address] Gab Lester MD Attending Provider Non-Staff Referring Provider Address: [facility] [place], [address] MEDICATION ASSISTANT Treatment Note MEDICATION ASSISTANT Clinical Instructor Line Start: 11/21/21 16:27 Freq: Status: Active Protocol: Document 11/21/21 16:41 CYNTHIA (Rec: 11/22/21 16:42 CYNTHIA [id number]) Clinical Instructor Signature Clinical Instructor Clinical Instructor Yes MEDICATION ASSISTANT Treatment Note Start: 08/29/21 13:32 Freq: Status: Active Protocol: Document 11/21/21 15:21 EK (Rec: 11/22/21 15:29 EK [id number]) Speech Pathology Treatment Note Session Time Visit Start Time 13:35 Visit Stop Time 14:15 Total Visit Minutes 40 Visit Information Visit Number 03/29 Plan of Care Dates 08/29/21 - 12/06/[address] 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 Symptoms began with headache and nausea in October 2017. Pt's parents brought her to [facility], where CT scan revealed a potential brain mass. Pt went to [facility] ED the following day, where MRI revealed no underlying mass but asymmetry in the size of the lateral ventricles, smaller on the left than the right, which may explain the reported concern by prior CT scanning. The pt went home and the following day had grand mal seizure. She was admitted to [facility] ICU for 6 mos ([id number]) with severe dyskinesia and ongoing seizure activity. A coma was induced, and the pt underwent tracheotomy and PEG tube feeding. As she became more alert and able to track and respond to stimuli, she was transferred to the Neuroscience floor of hospital where she remained for ~2 mos until transferring to [facility] facility in [place] for ~ 4 mos. There, she regressed and had increased seizure activity and was returned to [facility] ICU. A Neurologist diagnosed a reaction to medication ( Amantadine). The medication was removed and the pt transferred again to Neuroscience floor and seizures stopped. The pt went home in December 2018 with HH (PT/ OT/ST, Nsg and CG) and continued to show progress at home, starting to walk and speak again in 2019. Her mother is a para-educator and was highly participatory in her rehabilitation. Today the pt is self- ambulatory and communicating independently without notable speech or language deficits. PEG tube and port have been removed. Tracheostomy and medication port remain in place, though neither is actively used. The pt is medically cleared to have them closed/removed, but the patient is currently refusing the procedures; the reason was not given. The pt reports ongoing cognitive impairments, particularly in areas of mathematical skills, problem solving and abstract reasoning . Her mother reported ongoing behavioral changes including anxiety, anger, and lack of social interest. 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 Subjective Others Present Additional Therapist Observations/Patient Presentation Pt arrived on time accompanied by her parents, who were not present during the session. Chief Complaint(s) Language,Cognitive Patient Knowledge/Awareness of MEDICATION ASSISTANT Role Good in Treatment Parent/Caretake Knowledge/Awareness of Good MEDICATION ASSISTANT Role in Treatment Patient/Caregiver Compliance with Home Good Exercise Program Objective Short Term Goals 1. The pt will perform simple functional household tasks requiring problem-solving ability with min assistance using Huih-Oayt-Ys-Review strategy to increase independence and safety. 2. The pt will perform moderately complex in-clinic tasks requiring alternating attention with minimal assistance to improve attention skills required for return to education. 3. The pt will perform abstract reasoning tasks of moderate complexity with 80% accuracy to improve executive function skills required for functional ADLs and return to school. 4. The pt will perform simple in-clinic visuospatial tasks requiring planning and execution with 80% accuracy to improve executive function skills necessary for functional ADLs and return to school. 5. The pt will complete mathematical problems ( addition, subtraction, multiplication, division) of moderate complexity with 80% accuracy to improve math skills necessary for functional ADLs and return to school. Promotional Advertising Assistant Goals 1. The pt will perform moderately complex functional household tasks requiring problem-solving ability independently using Goal-Plan- Do-Review strategy to increase independence and safety. 2. The pt will perform moderately complex functional household tasks requiring alternating attention (e.g., following a recipe) with minimal assistance to improve attention skills required for return to education. 3. The pt will perform deductive reasoning tasks of moderate complexity with 80% accuracy to improve executive function skills required for functional ADLs and return to school. 4. The pt will perform functional home/community tasks requiring planning and execution (e.g., attending appts, meeting HEP deadlines) with min assistance and 80% accuracy to improve executive function skills necessary for functional ADLs and return to school. 5. The pt will complete moderately complex story problems involving basic math functions and measuring with 80% accuracy to improve ability to perform ADLs and return to school. Treatment Activities Targeted numeric problem solving and mental flexibility by working with various mathematical functions via [employer] shane. Trained pt in calculating 3x of given amounts, averaging, and finding equivalents. Pt required min-mod assistance to complete tasks. Pt reported that she is utilizing the shane everyday as part of HEP. Collaborated on progress in finding a autism tutor and possible next steps in that process. Assessment Patient Response to Treatment Excellent Rehab Potential Excellent Progress Towards Goals Excellent Progress,Good Progress Assessment of Overall Progress Improving Assessment of Improvement Pt continues to make excellent progress. Pt required less cueing than compared to last session in order to be successful. Pt was receptive to HEP and feedback provided. Reviewed with Patient Goals,Progress Being Made,Home Exercise Program Patient/Caregiver Understanding Good Plan Amount of Therapy Recommended 10 Months Frequency of Treatment Once a Week Length of Session 45 Minutes Treatment Emphasis Next Session Cont targeting math skills. F/ U on schedule recommendations Therapeutic Contents Client Education,Cognitive- Linguistic Training,Home Exercise Program,Information Processing,Return to School Provided Patient/Caregiver Instruction Home Exercise Program,Plan of Care,Questions/Concerns Therapy Recommendations Continue with Current Program Other Referrals Mental Health; Academic placement assessment and education
--- NOTE | 2021-11-28 17:11 | ST.OPDS ---
Visit Care Team Role Provider Type Bill Monteiro MD Primary Care Provider Non-Staff Address: [address] [facility], [place], [address] Gab Lester MD Attending Provider Non-Staff Referring Provider Address: [facility] [place], [address] CARRY ALL DRIVER Treatment Note CARRY [employer] DRIVER Clinical Instructor Line Start: 11/21/21 16:27 Freq: Status: Active Protocol: Document 11/21/21 16:41 CYNTHIA (Rec: 11/22/21 16:42 CYNTHIA [id number]) Clinical Instructor Signature Clinical Instructor Clinical Instructor Yes C[employer]Y [employer] DRIVER Treatment Note Start: 08/29/21 13:32 Freq: Status: Active Protocol: Document 11/28/21 15:11 EK (Rec: 11/28/21 15:23 EK [id number]) Speech Pathology Treatment Note Session Time Visit Start Time 13:30 Visit Stop Time 14:15 Total Visit Minutes 45 Visit Information Visit Number 04/29 Plan of Care Dates 08/29/21 - 12/06/21 Insurance Information [facility] Setting Treatment Setting Outpatient Care Visit Type Note Type Discharge Summary General Information Patient History Pt is a 26-yr-old 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 Symptoms began with headache and nausea in October 2017. Pt's parents brought her to [facility], where CT scan revealed a potential brain mass. Pt went to [facility] ED the following day, where MRI revealed no underlying mass but asymmetry in the size of the lateral ventricles, smaller on the left than the right, which may explain the reported concern by prior CT scanning. The pt went home and the following day had grand mal seizure. She was admitted to [facility] ICU for 6 mos ([id number]) with severe dyskinesia and ongoing seizure activity. A coma was induced, and the pt underwent tracheotomy and PEG tube feeding. As she became more alert and able to track and respond to stimuli, she was transferred to the Neuroscience floor of hospital where she remained for ~2 mos until transferring to [facility] facility in [place] for ~ 4 mos. There, she regressed and had increased seizure activity and was returned to [facility] ICU. A Neurologist diagnosed a reaction to medication ( Amantadine). The medication was removed and the pt transferred again to Neuroscience floor and seizures stopped. The pt went home in December 2018 with HH (PT/ OT/ST, Nsg and CG) and continued to show progress at home, starting to walk and speak again in 2019. Her mother is a para-educator and was highly participatory in her rehabilitation. Today the pt is self- ambulatory and communicating independently without notable speech or language deficits. PEG tube and port have been removed. Tracheostomy and medication port remain in place, though neither is actively used. The pt is medically cleared to have them closed/removed, but the patient is currently refusing the procedures; the reason was not given. The pt reports ongoing cognitive impairments, particularly in areas of mathematical skills, problem solving and abstract reasoning . Her mother reported ongoing behavioral changes including anxiety, anger, and lack of social interest. 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 Subjective Others Present Additional Therapist Observations/Patient Presentation Pt arrived on time accompanied by her mother, who was present at the end of the session to discuss discharging from therapy. Chief Complaint(s) Language,Cognitive Patient Knowledge/Awareness of CARRY ALL DRIVER Role Good in Treatment Parent/Caretake Knowledge/Awareness of Good CARRY ALL DRIVER Role in Treatment Patient/Caregiver Compliance with Home Good Exercise Program Objective Short Term Goals 1. The pt will perform simple functional household tasks requiring problem-solving ability with min assistance using Sjau-Nrsd-Ax-Review strategy to increase independence and safety. GOAL MET. 2. The pt will perform moderately complex in-clinic tasks requiring alternating attention with minimal assistance to improve attention skills required for return to education. GOAL MET. 3. The pt will perform abstract reasoning tasks of moderate complexity with 80% accuracy to improve executive function skills required for functional ADLs and return to school. GOAL MET. 4. The pt will perform simple in-clinic visuospatial tasks requiring planning and execution with 80% accuracy to improve executive function skills necessary for functional ADLs and return to school. GOAL MET. 5. The pt will complete mathematical problems ( addition, subtraction, multiplication, division) of moderate complexity with 80% accuracy to improve math skills necessary for functional ADLs and return to school. GOAL MET. Fci Goals 1. The pt will perform moderately complex functional household tasks requiring problem-solving ability independently using Goal-Plan- Do-Review strategy to increase independence and safety. GOAL MET. 2. The pt will perform moderately complex functional household tasks requiring alternating attention (e.g., following a recipe) with minimal assistance to improve attention skills required for return to education. GOAL MET. 3. The pt will perform deductive reasoning tasks of moderate complexity with 80% accuracy to improve executive function skills required for functional ADLs and return to school. GOAL MET. 4. The pt will perform functional home/community tasks requiring planning and execution (e.g., attending appts, meeting HEP deadlines) with min assistance and 80% accuracy to improve executive function skills necessary for functional ADLs and return to school. GOAL MET. 5. The pt will complete moderately complex story problems involving basic math functions and measuring with 80% accuracy to improve ability to perform ADLs and return to school. GOAL MET. Treatment Activities Assessed pt's alternating attention and abstract reasoning skills. Pt required min cueing in order to complete the various tasks and as the tasks progressed, the pt completed the tasks independently. Pt has met goals and is ready for discharge. Discussed discharge plan with pt and mother. Recommend meeting with customer advisor at [employer] to discuss options for re-enrolling in school. Assessment Patient Response to Treatment Excellent Progress Towards Goals Goals Met,Appropriate for Discharge Assessment of Improvement Pt has made excellent progress over the course of treatment and has met all goals. Her pattern has been to be initially unsure when presented with a new task but quickly recalls how to complete the task (e.g. mathematical functions) and learns new tasks quickly. Anticipate that pt is at or near baseline to resume educational program and that this pattern of quick progression will continue. Pt reported that she feels almost ready to go back to college and continue her education. Reviewed with Patient Goals,Progress Being Made,Home Exercise Program Patient/Caregiver Understanding Good Plan Amount of Therapy Recommended No Further Therapy Frequency of Treatment No Further Therapy Therapy Recommendations Discharge from Speech Therapy Other Referrals Mental Health; Academic placement assessment and education
== END 2021-11-30 09:15 ==
LOC: SP 13:30
PROVIDERS: PCP Internal Medicine; Referring Provider Family Medicine; Visit Provider Family Medicine
DX: G04.90 Encephalitis and encephalomyelitis, unspecified (principal)
CPT/HCPCS: 92507; 92523